=== PATIENT | female | born 1970 | race African-American/Black ===

== ENCOUNTER 2018-10-18 17:24 | Emergency (ER) | payer MEDICAID, SELFPAY ==
[2018-10-18 17:25] VITALS: BP 169/101; PULSE 96; RESP 16; TEMP 36.4; O2SAT 97; BMI 29.7
--- NOTE | 2018-10-18 17:42 | ED.VIS.GEN ---
History of Present Illness Chief Complaint: Hypertension Narrative: Patient presenting for evaluation secondary hypertension. Patient has an underlying history of hypertension, is on a antihypertensive, but forgot to take her medication this morning. Patient states that she was completely asymptomatic and denies that she was having any chest pain shortness of breath headaches changes in vision numbness weakness exertional dyspnea or orthopnea. Patient was at the drugstore, she took her blood pressure and it was noted to be 180/120 and the machine said that she should see a doctor immediately. Therefore, the patient presented to the emergency department. Past Medical History - Allergies and Home Meds Allergies/Adverse Reactions: Allergies venom-honey bee [bee venom (honey bee)] Allergy (Verified 10/18/18 17:27) Unknown Primary Care Physician: Efren Guevara MD [Primary Care Provider] - Surgical History: hysterectomy Smoking Status: Current every day smoker - Family History Paternal Family History: Reports: Unknown Maternal Family History: Reports: Asthma, Hypertension, - - MS Review of Systems All systems negative except as indicated Physical Exam Vital Signs/Narrative: Vital Signs Temp Pulse Resp BP Pulse Ox 10/18/18 17:25 97.6 F L 96 16 169/101 H 97 General: Well nourished, Well developed, No Acute Distress Head: Normocephalic, Atraumatic Eyes: Perrl, EOMI ENT: Moist mucous membranes, No rhinorrhea Neck: Supple, Nontender Cardiovascular: Regular rate, Regular rhythm, No murmurs. Negative for: S3, S4 Respiratory: No distress, CTA bilaterally, Chest nontender Abdomen: Soft, Nontender, Nondistended, Normal bowel sounds Extremities: Nontender, No edema Skin: Normal color, No rash Neurological: Alert, Oriented x3, Cranial nerves II-XII grossly intact, Normal Strength, Normal Sensation Psychological: Normal affect, Normal Mood Diagnostic/Tx/Re-eval - Medical Decision Making Patient presented secondary to hypertension. In the emergency department patient's blood pressure was 150s over 90s. She is completely asymptomatic. This point she has no signs or symptoms of hypertensive emergency or endorgan damage. I believe that she safely can be discharged with continued oral medication with her prescribed antihypertensive. She was recommended follow-up with her primary care physician. ED Disposition - Plan for ED Patient: Disposition: Home or Assisted Living Diagnosis: Hypertension Instructions: ED HTN Established Referrals: Efren Guevara MD [Primary Care Provider] - 5-7 Days
[2018-10-18 17:56] VITALS: BP 157/88; PULSE 93; RESP 16; O2SAT 98
== END 2018-10-18 18:07 | disposition home or self-care (01) ==
PROVIDERS: Emergency Provider Emergency Medicine; Family Provider Family Medicine; PCP Family Medicine
DX: I10 Essential (primary) hypertension (principal); Z79.899 Other long term (current) drug therapy; F17.200 Nicotine dependence, unspecified, uncomplicated
CPT/HCPCS: 99282

== ENCOUNTER 2019-09-22 18:37 | Emergency (ER) | payer MEDICAID, SELFPAY ==
[2019-09-22 18:38] VITALS: BP 159/100; PULSE 98; PULSE 99; RESP 17; TEMP 36.2; O2SAT 98; BMI 28.3
--- NOTE | 2019-09-22 18:52 | ED.VIS.GEN ---
History of Present Illness Chief Complaint: Diarrhea Informant: Patient Onset: Today Narrative: Presents with concerns for food poisoning with diarrhea. Ate a [employer] sandwich at 5 PM less than 2 hours ago shortly after had some stomach cramping nausea and 2 loose stools since then. Nonbloody non-tarry. No fevers. No urinary symptoms. Currently nauseated. Denies any recent antibiotics. Denies any past medical history. Prior similar symptoms: No Past Medical History - Allergies and Home Meds Allergies/Adverse Reactions: Allergies venom-honey bee [bee venom (honey bee)] Allergy (Verified 09/22/19 18:38) Unknown Primary Care Physician: Alexis Martinez MD [Primary Care Provider] - Past Medical History: - - Denies Surgical History: hysterectomy Smoking Status: Current every day smoker - Family History Paternal Family History: Reports: Unknown Maternal Family History: Reports: Asthma, Hypertension, - - MS Review of Systems General: Denies: Chills, Fever, Sweats Eyes: Denies: Visual changes - bilaterally, Diplopia ENT: Denies: Rhinorrhea, Sore throat Cardiovascular: Denies: Chest pain, Palpitations Respiratory: Denies: Dyspnea, Cough, Dyspnea on exertion Gastrointestinal: Reports: Nausea, Diarrhea. Denies: Abdominal pain, Vomiting, Melena, Hematochezia Genitourinary: Denies: Dysuria, Hematuria, Frequency Musculoskeletal: Denies: Back pain, Extremity Pain Skin: Denies: Rash, Wounds Neurological: Denies: Headache, Weakness, Numbness Physical Exam Vital Signs/Narrative: Vital Signs Temp Pulse Resp BP Pulse Ox 09/22/19 18:38 97.1 F L 98 17 159/100 H 98 Inital Vital Signs reviewed: Yes General: Well nourished, Well developed, No Acute Distress Head: Normocephalic, Atraumatic Eyes: Perrl, EOMI ENT: Moist mucous membranes Neck: Supple, Nontender Cardiovascular: Regular rate, Regular rhythm, No murmurs Respiratory: No distress, CTA bilaterally, Chest nontender Abdomen: Soft, Nontender, Nondistended, Normal bowel sounds, - - Negative Reed's or McBurney's tenderness. Back: Nontender, Normal Inspection Extremities: Nontender, No edema Skin: Normal color, No rash Neurological: Alert, Oriented x3, Cranial nerves II-XII grossly intact, Normal Strength, Normal Sensation Psychological: Normal affect, Normal Mood ED Disposition - Plan for ED Patient: Disposition: Home or Assisted Living Diagnosis: Diarrhea Instructions: ED Vomiting and Diarrhea Nonspecific Adult Prescriptions: Ondansetron [Zofran Odt] 8 mg PO Q8H PRN PRN #10 tab PRN Reason: Nausea Transmission Status: Pending to [facility][id number] Referrals: Alexis Martinez MD [Primary Care Provider] - 3-5 Days if not improving
[2019-09-22] MEDS: Ondansetron ODT 4 MG Tablet 8 MG PO (19:32)
--- NOTE | 2019-09-22 19:46 | ED.RN ---
Pt provided 8 oz of water for PO challenge per Dr Jang
[2019-09-22 20:35] VITALS: BP 129/99; PULSE 99; RESP 16; O2SAT 100
== END 2019-09-22 20:35 | disposition home or self-care (01) ==
PROVIDERS: Emergency Provider Emergency Medicine; PCP Family Medicine
DX: R19.7 Diarrhea, unspecified (principal); R10.9 Unspecified abdominal pain; R11.0 Nausea; F17.200 Nicotine dependence, unspecified, uncomplicated
CPT/HCPCS: 99283

== ENCOUNTER 2019-10-13 05:21 | Inpatient (IN) | payer MEDICAID, SELFPAY ==
[2019-10-13] VITALS (12 sets, daily range): BP systolic 152–182; BP diastolic 89–121; PULSE 72–108; RESP 16–22; TEMP 35.7–36.8; O2SAT 95–100; BMI 28.1; BMI 27.6; BMI 27.7
--- NOTE | 2019-10-13 05:24 | RAD_ITS ---
STUDY: X-RAY CHEST REASON FOR EXAM: Female, 49 years old. chest pain TECHNIQUE: AP portable chest. COMPARISON: None. FINDINGS: The lungs are clear and expanded. There is no demonstrated pleural abnormality. Normal size heart. Normal mediastinum and brianna. Normal visualized pulmonary arteries. Normal visualized aortic arch and descending thoracic aorta. Normal visualized thoracic spine. Normal visualized ribs, clavicles, and shoulders. There is no demonstrated abnormality of the visualized soft tissue structures of the upper abdomen. RAD/Chest 1 View (Portable) IMPRESSION: Normal x-ray examination of the chest. Electronically Signed: Dirk Winters MD at 6:44 EDT , Service support ,
--- NOTE | 2019-10-13 05:24 | EKG12_ITS ---
Test Reason : CP Blood Pressure : / mmHG Vent. Rate : 105 BPM Atrial Rate : 105 BPM P-R Int : 130 ms QRS Dur : 090 ms QT Int : 358 ms P-R-T Axes : 051 093 077 degrees QTc Int : 473 ms Sinus tachycardia Nonspecific ST abnormality Abnormal ECG Confirmed by VERNON ZEPEDA, LD ([id number]), editor magazine STEPHANIE VALLEJO ([id number]) on 10/19/2019 9:44:06 AM Referred By: Confirmed By:LD JUNIOR MD
[2019-10-13 05:33] LABS: Absolute Neutrophil Count 6.2 X10^3/uL (2.0-7.7); Basophil# 0.02 X10^3/uL; Basophil% 0.2 % (0-1); Eosinophil# 0.02 X10^3/uL; Eosinophils% 0.2 % (0-5); Hematocrit 39.9 % (37-47); Hemoglobin 13.4 g/dL (12.0-15.0); Lymphocyte % 20.3 % (19-41); Mean Corp Hgb Conc 33.6 g/dL (32-36); Mean Corpuscular Volume 92.4 fL (81-99); Mean Platelet Vol. 10.1 fl (6.2-12.0); Monocyte# 0.38 X10^3/uL; Monocyte% 4.5 % (0-10); NRBC Flagged by Analyzer 0 % (0-5); Neutrophil # 6.23 X10^3/uL (2.7-7.7); Neutrophil % 74.6 % (47-70); Platelet Count 278 K/mm3 (150-450); RBC Distribution Width CV 13.6 % (11.6-14.6); RBC Distribution Width SD 45.3 fl (35.1-43.9); Red Blood Count 4.32 M/mm3 (4.2-5.4); White Blood Count 8.4 K/mm3 (4.4-11.0)
[2019-10-13] MEDS: Ondansetron 4 MG/2 ML Vial IV ×2 (05:38→19:31)
[2019-10-13] MEDS: Mag Hydrox/Al Hydrox/Simeth 30 ML UDC PO ×2 (05:39→20:01)
--- NOTE | 2019-10-13 05:57 | ED.VIS.GEN ---
History of Present Illness Chief Complaint: Chest Pain Informant: Patient Narrative: Patient states that yesterday during the day she kept forcefully expelling acid from her stomach. She does not call it vomiting. She states she has not been able to eat. She states that she has tried some Tums and Pepcid. She states that her chest and upper abdomen is sore from this vomiting. No fevers. No diarrhea. She states that she has had pancreatitis in the past and this feels much different. She states that she is never had gallstones. She had an MRCP in 2016 and was noted to have an enlarging pancreatic mass. She tells me she ended up having a biopsy and it was diagnosed as benign. Past Medical History - Allergies and Home Meds Allergies/Adverse Reactions: Allergies venom-honey bee [bee venom (honey bee)] Allergy (Verified 10/13/19 05:26) Unknown Primary Care Physician: Alexis Martinez MD [Primary Care Provider] - Surgical History: hysterectomy Smoking Status: Former smoker - Family History Paternal Family History: Reports: Unknown Maternal Family History: Reports: Asthma, Hypertension, - - MS Review of Systems General: Denies: Chills, Fever, Sweats Eyes: Denies: Visual changes - bilaterally, Diplopia ENT: Denies: Rhinorrhea, Sore throat Cardiovascular: Reports: Chest pain. Denies: Palpitations Respiratory: Reports: Dyspnea. Denies: Cough, Dyspnea on exertion Gastrointestinal: Reports: Abdominal pain, Nausea, Vomiting. Denies: Diarrhea, Melena, Hematochezia Genitourinary: Denies: Dysuria, Hematuria, Frequency Musculoskeletal: Denies: Back pain, Extremity Pain Skin: Denies: Rash, Wounds Neurological: Denies: Headache, Weakness, Numbness Physical Exam Vital Signs/Narrative: Vital Signs Temp Pulse Resp BP Pulse Ox 10/13/19 05:30 108 H 22 H 167/119 H 100 10/13/19 05:26 166/97 H 10/13/19 05:21 96.3 F L 106 H 18 182/121 H 99 Inital Vital Signs reviewed: Yes General: Well nourished, Well developed, No Acute Distress Head: Normocephalic, Atraumatic Eyes: Perrl, EOMI ENT: Moist mucous membranes, No rhinorrhea Neck: Supple, Nontender Cardiovascular: Regular rate, No murmurs, Tachycardia Respiratory: CTA bilaterally, Chest nontender, Chest tenderness, - - Patient is tachypneic but not in distress Abdomen: Soft, Nondistended, Normal bowel sounds, Tender - Mild epigastric tenderness. Negative for: Guarding, Rebound tenderness Back: Nontender, Normal Inspection Extremities: Nontender, No edema Skin: Normal color, No rash Neurological: Alert, Oriented x3, Cranial nerves II-XII grossly intact, Normal Strength, Normal Sensation Psychological: Normal affect, Normal Mood Diagnostic/Tx/Re-eval Clinical Impression(s) from Imaging Studies Chest X-Ray 10/13/19 05:24 IMPRESSION: Normal x-ray examination of the chest. Electronically Signed: Dirk Winters MD at 6:44 EDT , Service support , Abdomen/Pelvis CT 10/13/19 06:15 IMPRESSION: Enlargement of the head of the pancreas with surrounding fat infiltration, suspicious for recurrent acute pancreatitis. No demonstrated pseudocyst or ductal dilatation. 2.5 cm nodular structure protruding into the lumen of the duodenal sweep may represent a growing pancreatic mass or an ampullary mass. Consider follow-up MRCP or upper endoscopy. Fatty liver. Colonic diverticulosis, without evidence for acute diverticulitis. Previous hysterectomy. No evidence for appendicitis. No evidence for bowel obstruction or ileus. Electronically Signed: Wilmer Resendiz MD at 7:33 EDT , Service support , Chest CTA 10/13/19 06:40 IMPRESSION: Normal CTA chest examination, without a demonstrated pulmonary embolism, aortic aneurysm, aortic dissection. No evidence for acute cardiopulmonary pathology. Electronically Signed: Wilmer Resendiz MD at 7:22 EDT , Service support , Laboratory Last Values WBC 8.4 K/mm3 (4.4-11.0) 10/13/19 05:27 RBC 4.32 M/mm3 (4.2-5.4) 10/13/19 05:27 Hgb 13.4 g/dL (12.0-15.0) 10/13/19 05:27 Hct 39.9 % (37-47) 10/13/19 05:27 MCV 92.4 fL (81-99) 10/13/19 05:27 MCH 31.0 pg (27.0-32.0) 10/13/19 05:27 MCHC 33.6 g/dL (32-36) 10/13/19 05:27 RDW Std Deviation 45.3 fl (35.1-43.9) H 10/13/19 05:27 RDW Coeff of Jose M 13.6 % (11.6-14.6) 10/13/19 05:27 Plt Count 278 K/mm3 (150-450) 10/13/19 05:27 MPV 10.1 fl (6.2-12.0) 10/13/19 05:27 Immature Gran % (Auto) 0.200 % (0.0-0.9) 10/13/19 05:27 Neut % (Auto) 74.6 % (47-70) H 10/13/19 05:27 Lymph % (Auto) 20.3 % (19-41) 10/13/19 05:27 Gordon % (Auto) 4.5 % (0-10) 10/13/19 05:27 Eos % (Auto) 0.2 % (0-5) 10/13/19 05:27 Baso % (Auto) 0.2 % (0-1) 10/13/19 05:27 Absolute Neuts (auto) 6.2 X10^3/uL (2.0-7.7) 10/13/19 05:27 Absolute Lymphs (auto) 1.70 X10^3/uL (0.83-4.51) 10/13/19 05:27 Nucleated RBC % 0 % (0-5) 10/13/19 05:27 Sodium 137 mmol/L (136-145) 10/13/19 05:27 Potassium 3.7 mmol/L (3.5-5.1) 10/13/19 05:27 Chloride 101 mmol/L (98-107) 10/13/19 05:27 Carbon Dioxide 23.0 mmol/L (21.0-32.0) 10/13/19 05:27 Anion Gap 13 (5-15) 10/13/19 05:27 BUN 8 mg/dL (7-18) 10/13/19 05:27 Creatinine 1.04 mg/dL (0.55-1.02) H 10/13/19 05:27 Estim Creat Clear Calc 64.33 ml/min 10/13/19 05:27 Est GFR (MDRD) Af Amer 73 mL/min (>60) 10/13/19 05:27 Est GFR (MDRD) Non-Af 60 mL/min (>60) 10/13/19 05:27 BUN/Creatinine Ratio 7.7 RATIO (10-20) L 10/13/19 05:27 Glucose 141 mg/dL (74-106) H 10/13/19 05:27 Calcium 9.8 mg/dL (8.5-10.1) 10/13/19 05:27 Total Bilirubin 0.90 mg/dL (0.20-1.00) 10/13/19 05:27 Direct Bilirubin 0.28 mg/dL (0.00-0.30) 10/13/19 05:27 AST 37 U/L (15-37) 10/13/19 05:27 ALT 49 U/L (13-56) 10/13/19 05:27 Alkaline Phosphatase 85 U/L (45-117) 10/13/19 05:27 Troponin I < 0.015 ng/mL (<0.045) 10/13/19 05:27 Total Protein 8.8 g/dL (6.4-8.2) H 10/13/19 05:27 Albumin 4.6 g/dL (3.2-5.0) 10/13/19 05:27 Globulin 4.2 g/dL (2.2-4.2) 10/13/19 05:27 Lipase 1638 U/L (73-393) H 10/13/19 05:27 - EKG Initial EKG Interpretation: Sinus Tachycardia - EKG demonstrates a sinus tachycardia at a rate of 105 without concerning features of ACS. This was compared to prior EKG dated 10 October 2014. No significant changes. - Medical Decision Making Initially the patient received fluids Zofran and a GI cocktail. She was vomiting and experiencing pain so we gave Toradol. Her labs came back with a markedly elevated lipase morphine and Zofran were ordered for as needed use. Because it is been at least 4 years since her last episode of pancreatitis we went ahead and ordered a CT of the abdomen pelvis. This noted enlargement of the head of the pancreas surrounding fat infiltration. No pseudocyst or ductal dilatation. Of note they did mention a 2.5 cm nodular structure protruding into the lumen of the duodenal sweep possibly representing a growing pancreatic mass or an ampullary mass. At this point patient will be admitted into the hospital for further care ED Disposition - Plan for ED Patient: Disposition: Acute Care Hospital [facility], [place] Diagnosis: Acute pancreatitis, Chest wall pain, Acute abdominal pain Referrals: Alexis Martinez MD [Primary Care Provider] -
[2019-10-13] MEDS: Ketorolac 30 MG/ML Syringe IV (06:01)
[2019-10-13 06:10] LABS: AST(SGOT) 37 U/L (15-37); Alanine Aminotransfer ALT/SGPT 49 U/L (13-56); Albumin, Serum 4.6 g/dL (3.2-5.0); Alkaline Phosphatase 85 U/L (45-117); Anion Gap 13 (5-15); BUN 8 mg/dL (7-18); BUN/Creat Ratio 7.7 RATIO (10-20); Bilirubin, Direct 0.28 mg/dL (0.00-0.30); Calcium,Total 9.8 mg/dL (8.5-10.1); Chloride 101 mmol/L (98-107); Creatinine, Serum 1.04 mg/dL (0.55-1.02); EST Glomerular Filtration Rate 60 mL/min (>60); Est Glom Filt Rate - Afr Amer 73 mL/min (>60); Estimated Creatinine Clearance 64.33 ml/min; Globulin 4.2 g/dL (2.2-4.2); Glucose 141 mg/dL (74-106); Lipase 1638 U/L (73-393); Potassium 3.7 mmol/L (3.5-5.1); Protein, Total 8.8 g/dL (6.4-8.2); Sodium Level 137 mmol/L (136-145)
--- NOTE | 2019-10-13 06:15 | CT_ITS ---
STUDY: CT ABDOMEN AND PELVIS WITHOUT CONTRAST REASON FOR EXAM: Female, 49 years old. Chest pain x 2 days, hypertension, hx pancreatitis with mass and biopsy (benign 2016), hysterectomy. RADIATION DOSAGE (If Supplied By Facility): CTDIvol = ( 9.79 ) mGy, DLP = ( 446.41 ) mGycm TECHNIQUE: Transaxial images were obtained from the dome of the diaphragm to the symphysis pubis without oral contrast, and without intravenous contrast. Sagittal and coronal images were reconstructed. Individualized dose optimization techniques were used for this CT. COMPARISON: CTA chest done today. CT scan abdomen and pelvis 10/10/2014. MRCP 11/21/2015. FINDINGS: The visualized lung bases are unremarkable. The visualized portions of the heart are within normal limits. There is decreased attenuation of the liver consistent with steatosis. Normal gallbladder and extrahepatic biliary system. Normal spleen. The head of the pancreas is enlarged and there is surrounding fat infiltration, suggesting recurrent acute pancreatitis. There is note demonstrated pseudocyst or ductal dilatation. As seen on axial images 39-44, there is a 2 x 2.2 x 2.5 cm nodular structure protruding into the lumen of the lesser curvature of the distal second portion of the duodenal sweep. Finding may represent a pancreatic mass growing into the duodenum or it might represent an ampullary mass. Similar appearance was not present on the 2015 exam and it is also not readily appreciated on the 2016 MRI. Normal bilateral adrenal glands. Normal right kidney. Normal left kidney. There is excreted contrast within the renal collecting systems, which limits evaluation for renal calculi. No large or obstructive calculi are evident. Assessment of the stomach is limited by poor distention. Aside from findings related to the proximal duodenal sweep, as above, normal appearing small intestine. There are multiple colonic diverticula consistent with diverticulosis. The appendix is visualized on axial images 73-81 and it appears normal.. Normal abdominal aorta. Normal inferior vena cava. There is no demonstrated retroperitoneal lymphadenopathy. Normal urinary bladder. There is absence of the uterus consistent with a prior hysterectomy. There is a small umbilical hernia, which contains fat, but no bowel. Normal osseous structures. CT/Abdomen/Pelvis W IV Cont ONLY IMPRESSION: Enlargement of the head of the pancreas with surrounding fat infiltration, suspicious for recurrent acute pancreatitis. No demonstrated pseudocyst or ductal dilatation. 2.5 cm nodular structure protruding into the lumen of the duodenal sweep may represent a growing pancreatic mass or an ampullary mass. Consider follow-up MRCP or upper endoscopy. Fatty liver. Colonic diverticulosis, without evidence for acute diverticulitis. Previous hysterectomy. No evidence for appendicitis. No evidence for bowel obstruction or ileus. Electronically Signed: Wilmer Resendiz MD at 7:33 EDT , Service support ,
--- NOTE | 2019-10-13 06:40 | CT_ITS ---
STUDY: CTA CHEST REASON FOR EXAM: Female, 49 years old. Chest pain x 2 days, hypertension, hx pancreatitis with mass and biopsy (benign 2016), hysterectomy. RADIATION DOSAGE (If Supplied By Facility): CTDIvol = ( 9.79 ) mGy, DLP = ( 446.41 ) mGycm TECHNIQUE: The examination was performed with the intravenous administration of 100mL Isovue 370. Post-processing of the angiographic images was performed, with multiplanar reformation, but without 3D reconstruction. Individualized dose optimization techniques were used for this CT. COMPARISON: Chest x-ray 10/13/2019. FINDINGS: Normal enhancement of the main pulmonary artery and right and left pulmonary arteries. Normal enhancement of the bilateral peripheral pulmonary arteries. There is no demonstrated pulmonary embolism. Normal thoracic aorta and visualized great vessels. There is no demonstrated aortic dissection. Normal heart and pericardium. Normal mediastinum. Normal hilar regions. Normal visualized trachea and bronchi. The lungs are well expanded. Normal pulmonary parenchyma. Normal pleura. Normal chest wall structures. Normal osseous structures. Abdominal findings will be discussed in CT scanning abdomen and pelvis report. CT/CTA Chest W/WO Contrast IMPRESSION: Normal CTA chest examination, without a demonstrated pulmonary embolism, aortic aneurysm, aortic dissection. No evidence for acute cardiopulmonary pathology. Electronically Signed: Wilmer Resendiz MD at 7:22 EDT , Service support ,
[2019-10-13] MEDS: 0.9% Normal Saline 1,000 ML 999 ML IV (07:07)
--- NOTE | 2019-10-13 07:43 | PCM.HP.STD ---
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 Patient presents with 3-day history of abdominal discomfort with nausea and vomiting. Patient admits to having history of GERD and has been having recurrent reflux. Pain was progressive the night prior to admission. It was epigastric and radiated to the upper quadrants, worse with eating, dull, no relieving factors. Vitals showed temperature of 90 6.3F, heart rate 106, blood pressure 182/121, respiratory was 18, SPO2 99% on room air. WBC count was 8.4, hemoglobin 13.4, platelet count 273, CMP was unremarkable. Lipase is 1638. Admitting chest x-ray was unremarkable. Of the abdomen and pelvis shows enlargement of the head of the pancreas with surrounding fat infiltration suspicious for recurrent acute pancreatitis. 2.5 cm nodular structure protruding to the lumen of the duodenal sweep, possible pancreatic mass. CTA of the chest was unremarkable. MRCP was unremarkable. 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 Denies: Chills, Fever, Weight Change Eyes: Denies: Blurred vision, Cataracts HEENT: Denies: Head Aches, Hearing Changes, Sinus Congestion, Sinus Drainage Cardiovascular: Denies: Chest Pain, Claudication, Palpitations Respiratory: Denies: Cough, Hemoptysis, Shortness of breath at rest, Sputum production Gastrointestinal: Reports: Abdominal Pain, Nausea, Vomiting. Denies: Diarrhea, Dyspepsia, Hematemesis, Hematochezia, Melena Genitourinary: Denies: Dysuria Musculoskeletal: Denies: Joint Pain, Joint Tenderness Skin: Denies: Rash, Wounds Neurological: Denies: Numbness, Tingling, Focal weakness Psychiatric: Denies: Anxiety, Depression, Homicidal Ideations, Suicidal Ideations Hematologic/ Lymphatic: Denies: Easy Bruising, Easy Bleeding VTE Information - Inpt Only VTE Present on Admission: No VTE Pharm Prophylaxis ordered?: Yes Patient Problems: Active and Suspected Problems Acute pancreatitis (Acute) Chest wall pain (Acute) Acute abdominal pain (Acute) - Physical Exam Vitals/I&O's: Vital Signs Temp Pulse Resp BP Pulse Ox 96.3 F L 88 16 167/114 H 99 10/13/19 05:21 10/13/19 07:08 10/13/19 07:08 10/13/19 07:08 10/13/19 07:08 Oxygen Flow Rate (L/min) 2 Oxygen Delivery Method Nasal Cannula Weight: 81.6 kg Body Mass Index (BMI) 28.1 General: Alert, Oriented x3, Cooperative, No apparent distress HEENT: Atraumatic, PERRLA, EOMI, Normocephalic Oral: Moist Mucosa Neck: Supple Lungs: Clear to auscultation, Normal air movement Cardiovascular: Regular rate, Regular Rhythm, Normal S1, Normal S2, No murmurs Abdomen: Bowel Sounds Present, Soft, Non-Distended, Tender - in the epigastric region, no guarding or rebound tenderness Extremities: No edema, Capillary Refill Less than 3 Seconds Skin: No rashes Musculoskeletal: No Tenderness to Palpation of Joints or Extremities Lymphatic: No Cervical, Supraclavicular, or Inguinal Adenopathy Neurological: Cranial nerves II-XII grossly intact Psych/Mental Status: Normal Affect, Appropriate Laboratory Results 10/13/19 05:27: WBC 8.4, RBC 4.32, Hgb 13.4, Hct 39.9, MCV 92.4, MCH 31.0, MCHC 33.6, RDW Std Deviation 45.3 H, RDW Coeff of Jose M 13.6, Plt Count 278, MPV 10.1, Immature Gran % (Auto) 0.200, Neut % (Auto) 74.6 H, Lymph % (Auto) 20.3, [place] % (Auto) 4.5, Eos % (Auto) 0.2, Baso % (Auto) 0.2, Absolute Neuts (auto) 6.2, Absolute Lymphs (auto) 1.70, Nucleated RBC % 0 10/13/19 05:27: Sodium 137, Potassium 3.7, Chloride 101, Carbon Dioxide 23.0, Anion Gap 13, BUN 8, Creatinine 1.04 H, Estim Creat Clear Calc 64.33, Est GFR (MDRD) Af Amer 73, Est GFR (MDRD) Non-Af 60, BUN/Creatinine Ratio 7.7 L, Glucose 141 H, Calcium 9.8, Total Bilirubin 0.90, Direct Bilirubin 0.28, AST 37, ALT 49, Alkaline Phosphatase 85, Troponin I < 0.015, Total Protein 8.8 H, Albumin 4.6, Globulin 4.2, Lipase 1638 H Current Medications Sodium Chloride () 1,000 mls @ 999 mls/hr IV .[id number] VICKIE Stop: 10/13/19 08:45 Last Admin: 10/13/19 07:07 Dose: 999 mls/hr Documented by: Morphine Sulfate () 4 mg IV X1 PRN PRN Reason: pain Ondansetron HCl (Zofran) 4 mg IV X1 PRN PRN Reason: NAUSEA Assessment/Plan All Active Problems Acute pancreatitis (Acute) Chest wall pain (Acute) Acute abdominal pain (Acute) Mid abdominal pain (Acute) Pancreatitis (Acute) 49 year old F with past medical history of 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 1. Acute recurrent pancreatitis, history of alcoholic pancreatitis Patient has history of alcohol use disorder although she says she last drank alcohol a week ago. Admitting lipase was more than 1600 N.p.o., IV fluids, pain control, IV PPI 2. Elevated blood pressure, likely related to pain Patient has history of hypertension. On lisinopril We will hold lisinopril for now in light of possible hemodynamic instability Resume tomorrow if renal function is stable 3. Possible duodenal/pancreatic mass, MRCP negative, Will monitor for now 4. GERD, on PPI 5. Depression, on Lexapro 6. DVT PPx- early ambulation Inpatient E&M: [id number] [facility] L[facility]
--- NOTE | 2019-10-13 07:47 | NURSING ---
MED SURG CHEST PAIN, ABD PAIN PAINTSIL
--- NOTE | 2019-10-13 08:32 | MRI_ITS ---
STUDY: MR MRCP WITHOUT CONTRAST REASON FOR EXAM: Female, 49 years old. panc mass, pancreatitis TECHNIQUE: Standard MRCP technique was utilized. COMPARISON: CT 10/13/2019, MRCP 11/21/2015 FINDINGS: Gall Bladder: Normal with no distention or demonstrated fixed intraluminal filling defect. Cystic duct: Normal with no demonstrated fixed filling defect. Intrahepatic ducts: Normal visualized intrahepatic ducts with no demonstrated fixed filling defect, dilation or stricture. Common hepatic duct: Normal with no demonstrated fixed filling defect, dilation or stricture. Common bile duct: Normal with no demonstrated fixed filling defect, dilation or stricture. Pancreatic duct: Normal with no demonstrated fixed filling defect, dilation or stricture. MRI/MRCP Abdomen without Contrast IMPRESSION: Normal MR Cholangiopancreatography (MRCP). Electronically Signed: Darrel Boothe MD at 11:11 EDT Tel , Service support ,
[2019-10-13] MEDS: 0.9% Normal Saline 1,000 ML 100 ML IV ×2 (08:51→19:55)
[2019-10-13] MEDS: Morphine 2 MG/ML Syringe IV ×3 (08:53→14:03)
[2019-10-13] MEDS: LORazepam 1 MG Tablet 2 MG PO (09:31)
--- NOTE | 2019-10-13 09:45 | NURSING ---
Off unit for MRCP
[2019-10-13] MEDS: 0.9% Saline Lock 10 ML Syringe IV ×3 (10:51→23:55)
[2019-10-13 11:06] LABS: Bedside Glucose 104 mg/dL (70-110)
--- NOTE | 2019-10-13 12:15 | CASEMGMT ---
RN ALEJANDRA PROFESSOR OF EXERCISE SCIENCE CM to room to meet with patient for initial transition planning/care coordination assessment. ELVA ROBERTS introduced self and role at [facility]. Pt voices understanding and consents to assessment at this time. Pt resting in bed in no distress at this time. Pt is A/O at this time and answers all questions appropriately. Care providers, pharmacy, and demographics verified/updated at this time. PCP: Dr Martinez Specialists: None Preferred Pharmacy: [facility] Insurance: [employer] Prescription Benefit: Yes Living Will/HPOA: Has both LW and Healthcare POA, who is her , Sidney LNOK: , Sidney Living Arrangements: Lives w/her in an apt w/10-15 steps to enter the apt. Denies difficulty with stairs. Independent. Transportation: Pt states drives self and states no transportation concerns at this time. also drives DME: Denies using any DME and denies needs. HHC/SNF: No history of either. No needs identified. Pt wishes to return home and states has no concerns with going home at time of discharge. Pt states she drink about 1/2 bottle of wine a day. She states she had quit drinking in 2016, but then just started again about 6 months to a year ago. Pt states does not wish to talk with SW or for any resources, stating not at this point. Pt made aware, if she does decide she would like to talk with SW or would like resources to let staff know. Pt voices understanding. CM to follow for any discharge planning/needs. Pt voices no concerns/needs at this time. Advised pt to ask for CM if any further questions/concerns/needs arise. Voices understanding. PLAN: Home Sarah AGOSTO RN, CM
[2019-10-13] MEDS: Morphine 4 MG/ML Syringe IV ×3 (17:21→23:55)
[2019-10-13 17:26] LABS: Bedside Glucose 110 mg/dL (70-110)
[2019-10-13] MEDS: hydrALAZINE 20 MG/ML Vial 5 MG IV (17:42)
[2019-10-13] MEDS: amLODIPine 5 MG Tablet PO (18:52)
[2019-10-14 00:05] LABS: Bedside Glucose 119 mg/dL (70-110)
[2019-10-14] MEDS: 0.9% Saline Lock 10 ML Syringe IV ×4 (02:55→23:47)
[2019-10-14] MEDS: Morphine 4 MG/ML Syringe IV ×7 (02:55→23:47)
[2019-10-14 03:01] VITALS: BP 148/89; PULSE 102; RESP 16; TEMP 37; O2SAT 100
[2019-10-14 05:45] LABS: Absolute Lymphocyte Count 1.29 X10^3/uL (0.83-4.51); Absolute Neutrophil Count 7.9 X10^3/uL (2.0-7.7); Basophil# 0.01 X10^3/uL; Basophil% 0.1 % (0-1); Eosinophil# 0.03 X10^3/uL; Eosinophils% 0.3 % (0-5); Hemoglobin 12.4 g/dL (12.0-15.0); Lymphocyte # 1.29 X10^3/ul (4.0); Lymphocyte % 13.1 % (19-41); Mean Corp Hgb Conc 32.6 g/dL (32-36); Mean Corpuscular Hgb 30.5 pg (27.0-32.0); Mean Corpuscular Volume 93.4 fL (81-99); Mean Platelet Vol. 10.4 fl (6.2-12.0); Monocyte# 0.59 X10^3/uL; NRBC Flagged by Analyzer 0 % (0-5); Neutrophil # 7.91 X10^3/uL (2.7-7.7); Neutrophil % 80.1 % (47-70); Platelet Count 218 K/mm3 (150-450); RBC Distribution Width CV 13.4 % (11.6-14.6); RBC Distribution Width SD 45.9 fl (35.1-43.9); Red Blood Count 4.07 M/mm3 (4.2-5.4); White Blood Count 9.9 K/mm3 (4.4-11.0)
[2019-10-14] MEDS: Ondansetron 4 MG/2 ML Vial IV ×2 (06:00→19:52)
[2019-10-14 06:04] LABS: ALB/GLOB Ratio 0.9 RATIO (0.9-2.4); AST(SGOT) 24 U/L (15-37); Alanine Aminotransfer ALT/SGPT 36 U/L (13-56); Albumin, Serum 3.8 g/dL (3.2-5.0); Alkaline Phosphatase 70 U/L (45-117); Anion Gap 10 (5-15); BUN 3 mg/dL (7-18); BUN/Creat Ratio 4.5 RATIO (10-20); Calcium,Total 8.8 mg/dL (8.5-10.1); Chloride 100 mmol/L (98-107); Creatinine, Serum 0.66 mg/dL (0.55-1.02); EST Glomerular Filtration Rate 101 mL/min (>60); Est Glom Filt Rate - Afr Amer 122 mL/min (>60); Estimated Creatinine Clearance 101.37 ml/min; Globulin 4.1 g/dL (2.2-4.2); Glucose 106 mg/dL (74-106); Lipase 856 U/L (73-393); Potassium 3.3 mmol/L (3.5-5.1); Protein, Total 7.9 g/dL (6.4-8.2); Sodium Level 136 mmol/L (136-145)
[2019-10-14] MEDS: 0.9% Normal Saline 1,000 ML 100 ML IV ×2 (06:06→15:57)
[2019-10-14] MEDS: Acetaminophen 325 MG Tablet 650 MG PO ×3 (06:06→23:47)
[2019-10-14 06:16] LABS: Bedside Glucose 122 mg/dL (70-110)
[2019-10-14 08:45] VITALS: BP 155/109; PULSE 98; RESP 16; TEMP 37.1; O2SAT 100
[2019-10-14] MEDS: Lisinopril 40 MG Tablet PO (08:46)
[2019-10-14] MEDS: amLODIPine 5 MG Tablet PO (08:46)
--- NOTE | 2019-10-14 10:16 | NURSING ---
offered to call pt and provide update, pt refused stating that she will update him later as he is getting chemo treatment at this time
[2019-10-14] MEDS: Potassium Chloride 10mEq/100mL 10 MEQ/100 ML IV.SOLN. 100 MEQ IV BOLUS ×2 (10:52→12:03)
[2019-10-14 10:56] VITALS: BP 133/90
[2019-10-14 12:16] LABS: Bedside Glucose 109 mg/dL (70-110)
--- NOTE | 2019-10-14 13:16 | PCM.CONS.GEN ---
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 Patient presents with 3-day history of abdominal discomfort with nausea and vomiting. Patient admits to having history of GERD and has been having recurrent reflux. Pain was progressive the night prior to admission. It was epigastric and radiated to the upper quadrants, worse with eating, dull, no relieving factors. Vitals showed temperature of 90 6.3F, heart rate 106, blood pressure 182/121, respiratory was 18, SPO2 99% on room air. WBC count was 8.4, hemoglobin 13.4, platelet count 273, CMP was unremarkable. Lipase is 1638. Admitting chest x-ray was unremarkable. Of the abdomen and pelvis shows enlargement of the head of the pancreas with surrounding fat infiltration suspicious for recurrent acute pancreatitis. 2.5 cm nodular structure protruding to the lumen of the duodenal sweep, possible pancreatic mass. CTA of the chest was unremarkable. MRCP was unremarkable. 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 Denies: Nausea, Vomiting Patient Problems: Active and Suspected Problems Acute pancreatitis (Acute) Chest wall pain (Acute) Acute abdominal pain (Acute) - Physical Exam Vitals/I&O's: Vital Signs Temp Pulse Resp BP Pulse Ox 98.8 F 98 16 133/90 H 100 10/14/19 08:45 10/14/19 08:45 10/14/19 08:45 10/14/19 10:56 10/14/19 08:45 Oxygen Flow Rate (L/min) 2 Oxygen Delivery Method Room Air Weight: 176 lb 12.795 oz Body Mass Index (BMI) 27.6 Intake and Output for Last 24 Hours 10/12/19 10/13/19 10/14/19 23:59 23:59 23:59 Intake Total 2241.66 / 2241.66 1491.33 / 1491.33 Output Total 200 / 200 1800 / 1800 Balance 2041.66 / 2041.66 -308.67 / -308.67 General: Alert, Oriented x3 Lungs: Clear to auscultation Cardiovascular: Regular rate, Regular Rhythm, No murmurs Abdomen: Bowel Sounds Present, Soft, Non Tender, Distended Laboratory Results 10/13/19 17:17: POC Glucose 110 10/13/19 23:57: POC Glucose 119 H 10/14/19 05:15: WBC 9.9, RBC 4.07 L, Hgb 12.4, Hct 38.0, MCV 93.4, MCH 30.5, MCHC 32.6, RDW Std Deviation 45.9 H, RDW Coeff of Jose M 13.4, Plt Count 218, MPV 10.4, Immature Gran % (Auto) 0.400, Neut % (Auto) 80.1 H, Lymph % (Auto) 13.1 L, [place] % (Auto) 6.0, Eos % (Auto) 0.3, Baso % (Auto) 0.1, Absolute Neuts (auto) 7.9 H, Absolute Lymphs (auto) 1.29, Nucleated RBC % 0 10/14/19 05:15: Sodium 136, Potassium 3.3 L, Chloride 100, Carbon Dioxide 26.0, Anion Gap 10, BUN 3 L, Creatinine 0.66, Estim Creat Clear Calc 101.37, Est GFR (MDRD) Af Amer 122, Est GFR (MDRD) Non-Af 101, BUN/Creatinine Ratio 4.5 L, Glucose 106, Calcium 8.8, Total Bilirubin 0.60, AST 24, ALT 36, Alkaline Phosphatase 70, Total Protein 7.9, Albumin 3.8, Globulin 4.1, Albumin/Globulin Ratio 0.9, Lipase 856 H 10/14/19 06:10: POC Glucose 122 H 10/14/19 12:00: POC Glucose 109 Current Medications Acetaminophen (Tylenol) 650 mg PO Q6H PRN PRN PRN Reason: Pain Score 1-10/Temp > 100.7 F Last Admin: 10/14/19 06:06 Dose: 650 mg Documented by: Al Hydroxide/Mg Hydroxide (Mylanta Ii) 30 ml PO Q4H PRN PRN PRN Reason: DYSPEPSIA Last Admin: 10/13/19 20:01 Dose: 30 ml Documented by: Amlodipine Besylate (Norvasc) 5 mg PO DAILY [facility] Last Admin: 10/14/19 08:46 Dose: 5 mg Documented by: Dextrose (D50w Syringe) 0 gm IV X1 PRN; Protocol PRN Reason: Hypoglycemia Glucagon () 1 mg IM .X1 PRN PRN Reason: Hypoglycemia Hydralazine HCl (Apresoline Iv) 5 mg IV Q6H PRN PRN PRN Reason: BLOOD PRESSURE Last Admin: 10/13/19 17:42 Dose: 5 mg Documented by: Sodium Chloride () 250 mls @ 15 mls/hr IV .[id number] PRN PRN Reason: Saline Flush Last Infusion: 10/14/19 13:03 Dose: 15 mls/hr Documented by: Sodium Chloride () 250 mls @ 15 mls/hr IV .[id number] PRN PRN Reason: Additional IVPB Infusion Sodium Chloride () 1,000 mls @ 100 mls/hr IV .Q10H VICKIE Last Infusion: 10/14/19 09:06 Dose: 100 mls/hr Documented by: Pantoprazole Sodium 40 mg/ (Sodium Chloride) 110 mls @ 330 mls/hr IV Q12 VICKIE Last Infusion: 10/14/19 09:06 Dose: Infused Documented by: Insulin Human Lispro (Humalog Kwikpen (Bkc)) 0 unit SC Q6 VICKIE; Protocol Last Admin: 10/14/19 12:00 Dose: Not Given Documented by: Lisinopril (Zestril) 40 mg PO DAILY VICKIE Last Admin: 10/14/19 08:46 Dose: 40 mg Documented by: Morphine Sulfate () 4 mg IV Q3H PRN PRN PRN Reason: Pain Score 6-10/10 Last Admin: 10/14/19 12:01 Dose: 4 mg Documented by: Ondansetron HCl (Zofran) 4 mg IV Q8H PRN PRN PRN Reason: NAUSEA/VOMITING Last Admin: 10/14/19 06:00 Dose: 4 mg Documented by: Sodium Chloride () 10 - 40 ml IV UD PRN PRN Reason: SALINE FLUSH Last Admin: 10/14/19 06:00 Dose: 10 ml Documented by: Assessment/Plan All Active Problems Acute pancreatitis (Acute) Chest wall pain (Acute) Acute abdominal pain (Acute) Mid abdominal pain (Acute) Pancreatitis (Acute) At this point conservative measurements are appropriate. She does have a chore worker that she has seen in [place] and I think the best course of action is to have CDs burned of all of her images so that she can go up and see the chore worker once she has resolved from this episode of pancreatitis. She more likely will have to have another EGD and possible exam ultrasound and potential pancreatic biopsy. Unfortunately we do not offer those services here. I reviewed the images from her past CAT scans in 2014 to now and this still might all be related to her pancreatitis. However I did instruct her that this is going to require her to get further follow-up. She understands and will be taking the lead and following up with her chore worker in [place]. Office Visits / Consults: [id number] IP Consult L3
[2019-10-14 15:00] VITALS: BP 134/92; PULSE 112; RESP 16; TEMP 36.8; O2SAT 100
--- NOTE | 2019-10-14 16:04 | PCM.PN.HOSP ---
Patient Problems: Active and Suspected Problems Acute pancreatitis (Acute) Chest wall pain (Acute) Acute abdominal pain (Acute) Reason for Visit: Follow-up on acute pancreatitis. Subjective: Patient was seen and examined. Her abdominal pain is improved. No nausea. No fevers or chills. Objective: Physical exam: General: Alert, Oriented x3, Cooperative, No apparent distress HEENT: Atraumatic, PERRLA, EOMI, Normocephalic Oral: Moist Mucosa Neck: Supple Lungs: Clear to auscultation, Normal air movement Cardiovascular: Regular rate, Regular Rhythm, Normal S1, Normal S2, No murmurs Abdomen: Bowel Sounds Present, Soft, Non-Distended, Tender - improved in the epigastric region, no guarding or rebound tenderness Extremities: No edema, Capillary Refill Less than 3 Seconds Skin: No rashes Musculoskeletal: No Tenderness to Palpation of Joints or Extremities Lymphatic: No Cervical, Supraclavicular, or Inguinal Adenopathy Neurological: Cranial nerves II-XII grossly intact Psych/Mental Status: Normal Affect, Appropriate Vitals/I&O's: Vital Signs Temp Pulse Resp BP Pulse Ox 98.3 F 112 H 16 134/92 H 100 10/14/19 15:00 10/14/19 15:00 10/14/19 15:00 10/14/19 15:00 10/14/19 15:00 Oxygen Flow Rate (L/min) 2 Oxygen Delivery Method Room Air Weight: 80.195 kg Body Mass Index (BMI) 27.6 Intake and Output for Last 24 Hours 10/12/19 10/13/19 10/14/19 23:59 23:59 23:59 Intake Total 2241.66 / 2241.66 2190.58 / 2190.58 Output Total 200 / 200 1800 / 1800 Balance 2041.66 / 2041.66 390.58 / 390.58 Laboratory Results 10/13/19 17:17: POC Glucose 110 10/13/19 23:57: POC Glucose 119 H 10/14/19 05:15: WBC 9.9, RBC 4.07 L, Hgb 12.4, Hct 38.0, MCV 93.4, MCH 30.5, MCHC 32.6, RDW Std Deviation 45.9 H, RDW Coeff of Jose M 13.4, Plt Count 218, MPV 10.4, Immature Gran % (Auto) 0.400, Neut % (Auto) 80.1 H, Lymph % (Auto) 13.1 L, [place] % (Auto) 6.0, Eos % (Auto) 0.3, Baso % (Auto) 0.1, Absolute Neuts (auto) 7.9 H, Absolute Lymphs (auto) 1.29, Nucleated RBC % 0 10/14/19 05:15: Sodium 136, Potassium 3.3 L, Chloride 100, Carbon Dioxide 26.0, Anion Gap 10, BUN 3 L, Creatinine 0.66, Estim Creat Clear Calc 101.37, Est GFR (MDRD) Af Amer 122, Est GFR (MDRD) Non-Af 101, BUN/Creatinine Ratio 4.5 L, Glucose 106, Calcium 8.8, Total Bilirubin 0.60, AST 24, ALT 36, Alkaline Phosphatase 70, Total Protein 7.9, Albumin 3.8, Globulin 4.1, Albumin/Globulin Ratio 0.9, Lipase 856 H 10/14/19 06:10: POC Glucose 122 H 10/14/19 12:00: POC Glucose 109 Current Medications Acetaminophen (Tylenol) 650 mg PO Q6H PRN PRN PRN Reason: Pain Score 1-10/Temp > 100.7 F Last Admin: 10/14/19 15:05 Dose: 650 mg Documented by: Al Hydroxide/Mg Hydroxide (Mylanta Ii) 30 ml PO Q4H PRN PRN PRN Reason: DYSPEPSIA Last Admin: 10/13/19 20:01 Dose: 30 ml Documented by: Amlodipine Besylate (Norvasc) 5 mg PO DAILY VICKIE Last Admin: 10/14/19 08:46 Dose: 5 mg Documented by: Dextrose (D50w Syringe) 0 gm IV X1 PRN; Protocol PRN Reason: Hypoglycemia Glucagon () 1 mg IM .X1 PRN PRN Reason: Hypoglycemia Hydralazine HCl (Apresoline Iv) 5 mg IV Q6H PRN PRN PRN Reason: BLOOD PRESSURE Last Admin: 10/13/19 17:42 Dose: 5 mg Documented by: Sodium Chloride () 250 mls @ 15 mls/hr IV .[id number] PRN PRN Reason: Saline Flush Last Infusion: 10/14/19 14:00 Dose: 0 mls/hr Documented by: Sodium Chloride () 250 mls @ 15 mls/hr IV .[id number] PRN PRN Reason: Additional IVPB Infusion Sodium Chloride () 1,000 mls @ 100 mls/hr IV .Q10H VICKIE Last Admin: 10/14/19 15:57 Dose: 100 mls/hr Documented by: Pantoprazole Sodium 40 mg/ (Sodium Chloride) 110 mls @ 330 mls/hr IV Q12 VICKIE Last Infusion: 10/14/19 09:06 Dose: Infused Documented by: Insulin Human Lispro (Humalog Kwikpen (Bkc)) 0 unit SC Q6 VICKIE; Protocol Last Admin: 10/14/19 12:00 Dose: Not Given Documented by: Lisinopril (Zestril) 40 mg PO DAILY [facility] Last Admin: 10/14/19 08:46 Dose: 40 mg Documented by: Morphine Sulfate () 4 mg IV Q3H PRN PRN PRN Reason: Pain Score 6-10/10 Last Admin: 10/14/19 15:57 Dose: 4 mg Documented by: Ondansetron HCl (Zofran) 4 mg IV Q8H PRN PRN PRN Reason: NAUSEA/VOMITING Last Admin: 10/14/19 06:00 Dose: 4 mg Documented by: Sodium Chloride () 10 - 40 ml IV UD PRN PRN Reason: SALINE FLUSH Last Admin: 10/14/19 06:00 Dose: 10 ml Documented by: STROKE Vital Signs/Narrative: Vital Signs Temp Pulse Resp BP Pulse Ox 10/14/19 15:00 98.3 F 112 H 16 134/92 H 100 Medical Necessity - Tobacco Use Smoking Status: Former smoker Tobacco Use: Non-smoker Assessment/Plan All Active Problems Acute pancreatitis (Acute) Chest wall pain (Acute) Acute abdominal pain (Acute) Mid abdominal pain (Acute) Pancreatitis (Acute) 49 year old F with past medical history of 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 1. Acute recurrent pancreatitis, history of alcoholic pancreatitis Patient has history of alcohol use disorder although she says she last drank alcohol a week ago. Admitting lipase was more than 1600 N.p.o., IV fluids, pain control, IV PPI 2. Abdominal mass?pancreatic/duodenal mass seen on CT scan MRCP is negative, general surgery consulted 3. Hypertension, uncontrolled, Started on amlodipine yesterday, Will resume lisinopril as renal function is improved elevated blood pressure. 4. Acute kidney injury, prerenal, secondary dehydration Admitting creatinine was 1.04, creatinine today 0.66 Continue on IV fluids, Repeat blood work in a.m. 5. GERD, on PPI 6. Depression, on Lexapro 7. DVT PPx- early ambulation Inpatient E&M: 54415 Subs Hosp L2
[2019-10-14 17:56] LABS: Bedside Glucose 97 mg/dL (70-110)
[2019-10-14] MEDS: Mag Hydrox/Al Hydrox/Simeth 30 ML UDC PO (19:52)
[2019-10-14 19:55] VITALS: BP 142/89; PULSE 98; RESP 16; TEMP 37.1; O2SAT 100
[2019-10-15] LABS: Bedside Glucose 93 mg/dL (70-110)
[2019-10-15] MEDS: 0.9% Normal Saline 1,000 ML 100 ML IV ×2 (02:04→11:27)
[2019-10-15 02:07] VITALS: BP 144/90; PULSE 98; RESP 16; TEMP 37.2; O2SAT 100
[2019-10-15] MEDS: Morphine 4 MG/ML Syringe IV ×2 (03:51→08:49)
[2019-10-15] MEDS: 0.9% Saline Lock 10 ML Syringe IV ×4 (03:51→14:02)
[2019-10-15 06:36] LABS: Absolute Lymphocyte Count 1.48 X10^3/uL (0.83-4.51); Absolute Neutrophil Count 6.4 X10^3/uL (2.0-7.7); Basophil# 0.01 X10^3/uL; Basophil% 0.1 % (0-1); Eosinophil# 0.08 X10^3/uL; Eosinophils% 0.9 % (0-5); Hematocrit 34.9 % (37-47); Hemoglobin 11.4 g/dL (12.0-15.0); Lymphocyte # 1.48 X10^3/ul (4.0); Lymphocyte % 17.2 % (19-41); Mean Corp Hgb Conc 32.7 g/dL (32-36); Mean Corpuscular Hgb 31.2 pg (27.0-32.0); Mean Corpuscular Volume 95.6 fL (81-99); Mean Platelet Vol. 10.5 fl (6.2-12.0); Monocyte# 0.57 X10^3/uL; Monocyte% 6.6 % (0-10); NRBC Flagged by Analyzer 0 % (0-5); Neutrophil # 6.44 X10^3/uL (2.7-7.7); Platelet Count 201 K/mm3 (150-450); RBC Distribution Width CV 13.4 % (11.6-14.6); RBC Distribution Width SD 47.3 fl (35.1-43.9); Red Blood Count 3.65 M/mm3 (4.2-5.4); White Blood Count 8.6 K/mm3 (4.4-11.0)
[2019-10-15] MEDS: Acetaminophen 325 MG Tablet 650 MG PO ×2 (06:43→13:59)
[2019-10-15] MEDS: Ondansetron 4 MG/2 ML Vial IV (06:43)
[2019-10-15 07:01] LABS: Bedside Glucose 78 mg/dL (70-110)
[2019-10-15 07:05] LABS: ALB/GLOB Ratio 0.8 RATIO (0.9-2.4); AST(SGOT) 15 U/L (15-37); Alanine Aminotransfer ALT/SGPT 25 U/L (13-56); Albumin, Serum 3.2 g/dL (3.2-5.0); Alkaline Phosphatase 58 U/L (45-117); Anion Gap 8 (5-15); BUN 4 mg/dL (7-18); BUN/Creat Ratio 6.5 RATIO (10-20); Calcium,Total 8.7 mg/dL (8.5-10.1); Chloride 99 mmol/L (98-107); Creatinine, Serum 0.62 mg/dL (0.55-1.02); EST Glomerular Filtration Rate 110 mL/min (>60); Est Glom Filt Rate - Afr Amer 133 mL/min (>60); Estimated Creatinine Clearance 107.91 ml/min; Globulin 3.8 g/dL (2.2-4.2); Glucose 92 mg/dL (74-106); Potassium 3.3 mmol/L (3.5-5.1); Sodium Level 135 mmol/L (136-145)
[2019-10-15 08:08] VITALS: BP 126/89; PULSE 90; RESP 16; TEMP 37.1; O2SAT 97
[2019-10-15] MEDS: Lisinopril 40 MG Tablet PO (08:51)
[2019-10-15] MEDS: amLODIPine 5 MG Tablet PO (08:51)
--- NOTE | 2019-10-15 12:13 | PCM.PN.SRG ---
Patient Problems: Active and Suspected Problems Acute pancreatitis (Acute) Chest wall pain (Acute) Acute abdominal pain (Acute) Subjective: Patient feels slightly more distended today she did have some nausea and vomiting this morning. Pain really has not significantly improved. Objective: Abdomen is distended but soft there is no rebound guarding or peritoneal signs identified. - Physical Exam Vitals/I&O's: Vital Signs Temp Pulse Resp BP Pulse Ox 98.7 F 90 16 126/89 H 97 10/15/19 08:08 10/15/19 08:08 10/15/19 08:08 10/15/19 08:08 10/15/19 08:08 Oxygen Flow Rate (L/min) 2 Oxygen Delivery Method Room Air Weight: 176 lb 12.795 oz Body Mass Index (BMI) 27.6 Intake and Output for Last 24 Hours 10/13/19 10/14/19 10/15/19 23:59 23:59 23:59 Intake Total 2241.66 / 2241.66 3300.58 / 3300.58 1900.00 / 1900.00 Output Total 200 / 200 2400 / 2400 400 / 400 Balance 2041.66 / 2041.66 900.58 / 900.58 1500.00 / 1500.00 Laboratory Results 10/14/19 12:00: POC Glucose 109 10/14/19 17:45: POC Glucose 97 10/14/19 23:53: POC Glucose 93 10/15/19 06:07: WBC 8.6, RBC 3.65 L, Hgb 11.4 L, Hct 34.9 L, MCV 95.6, MCH 31.2, MCHC 32.7, RDW Std Deviation 47.3 H, RDW Coeff of Jose M 13.4, Plt Count 201, MPV 10.5, Immature Gran % (Auto) 0.200, Neut % (Auto) 75.0 H, Lymph % (Auto) 17.2 L, [place] % (Auto) 6.6, Eos % (Auto) 0.9, Baso % (Auto) 0.1, Absolute Neuts (auto) 6.4, Absolute Lymphs (auto) 1.48, Nucleated RBC % 0 10/15/19 06:07: Sodium 135 L, Potassium 3.3 L, Chloride 99, Carbon Dioxide 28.0, Anion Gap 8, BUN 4 L, Creatinine 0.62, Estim Creat Clear Calc 107.91, Est GFR (MDRD) Af Amer 133, Est GFR (MDRD) Non-Af 110, BUN/Creatinine Ratio 6.5 L, Glucose 92, Calcium 8.7, Total Bilirubin 0.60, AST 15, ALT 25, Alkaline Phosphatase 58, Total Protein 7.0, Albumin 3.2, Globulin 3.8, Albumin/Globulin Ratio 0.8 L 10/15/19 06:41: POC Glucose 78 Current Medications Acetaminophen (Tylenol) 650 mg PO Q6H PRN PRN PRN Reason: Pain Score 1-10/Temp > 100.7 F Last Admin: 10/15/19 06:43 Dose: 650 mg Documented by: Al Hydroxide/Mg Hydroxide (Mylanta Ii) 30 ml PO Q4H PRN PRN PRN Reason: DYSPEPSIA Last Admin: 10/14/19 19:52 Dose: 30 ml Documented by: Amlodipine Besylate (Norvasc) 5 mg PO DAILY VICKIE Last Admin: 10/15/19 08:51 Dose: 5 mg Documented by: Dextrose (D50w Syringe) 0 gm IV X1 PRN; Protocol PRN Reason: Hypoglycemia Glucagon () 1 mg IM .X1 PRN PRN Reason: Hypoglycemia Hydralazine HCl (Apresoline Iv) 5 mg IV Q6H PRN PRN PRN Reason: BLOOD PRESSURE Last Admin: 10/13/19 17:42 Dose: 5 mg Documented by: Sodium Chloride () 250 mls @ 15 mls/hr IV .[id number] PRN PRN Reason: Saline Flush Last Infusion: 10/14/19 14:00 Dose: 0 mls/hr Documented by: Sodium Chloride () 250 mls @ 15 mls/hr IV .[id number] PRN PRN Reason: Additional IVPB Infusion Sodium Chloride () 1,000 mls @ 100 mls/hr IV .Q10H VICKIE Last Admin: 10/15/19 11:27 Dose: 100 mls/hr Documented by: Pantoprazole Sodium 40 mg/ (Sodium Chloride) 110 mls @ 330 mls/hr IV Q12 VICKIE Last Infusion: 10/15/19 09:17 Dose: Infused Documented by: Insulin Human Lispro (Humalog Kwikpen (Bkc)) 0 unit SC ACHS VICKIE; Protocol Iopamidol (Contrast Allergy Check) 0 ml IV X1 VICKIE Lisinopril (Zestril) 40 mg PO DAILY VICKIE Last Admin: 10/15/19 08:51 Dose: 40 mg Documented by: Morphine Sulfate () 4 mg IV Q3H PRN PRN PRN Reason: Pain Score 6-10/10 Last Admin: 10/15/19 08:49 Dose: 4 mg Documented by: Ondansetron HCl (Zofran) 4 mg IV Q8H PRN PRN PRN Reason: NAUSEA/VOMITING Last Admin: 10/15/19 06:43 Dose: 4 mg Documented by: Sodium Chloride () 10 - 40 ml IV UD PRN PRN Reason: SALINE FLUSH Last Admin: 10/15/19 08:51 Dose: 10 ml Documented by: Medical Necessity - Tobacco Use Smoking Status: Former smoker Tobacco Use: Non-smoker Assessment/Plan All Active Problems Acute pancreatitis (Acute) Chest wall pain (Acute) Acute abdominal pain (Acute) Mid abdominal pain (Acute) Pancreatitis (Acute) At this point still conservative measurements are the best. Have a feeling that she is going to make a very slow recovery.
--- NOTE | 2019-10-15 12:15 | NURSING ---
Pt off unit for CT of neck
--- NOTE | 2019-10-15 12:19 | CT_ITS ---
STUDY: CT SOFT TISSUE NECK WITH CONTRAST REASON FOR EXAM: Female, 49 years old. LYMPHADENOPATHY, SWELLING OF JAW RADIATION DOSAGE (If Supplied By Facility): CTDIvol = ( 18.13 ) mGy, DLP = ( 516.37 ) mGycm TECHNIQUE: The patient was scanned in a multi-detector CT scanner. High resolution transaxial imaging was performed following intravenous administration of 100 mL Isovue 370. Sagittal and coronal images were reconstructed. Individualized dose optimization techniques were used for this CT. COMPARISON: None. FINDINGS: Normal bilateral parotid glands. Normal bilateral tank cooper spaces. Normal bilateral parapharyngeal spaces. Normal bilateral carotid spaces. Normal bilateral sublingual and submandibular glands and spaces. Normal visualized nasopharynx. Normal retropharyngeal space. Normal perivertebral space. Normal visualized bilateral faucial tonsils. The visualized tongue, tongue base and oropharynx are normal. There are 2 small well-defined lymph nodes overlying the left masseter muscle. A small lymph node is also seen overlying the right masseter muscle. The largest measures 1.2 cm. Small lymph nodes are also seen in the posterior triangle of the right side of the neck. There is no demonstrated solid or cystic mass lesion. There is no abnormal contrast enhancement. Normal epiglottis, bilateral vallecula and hypopharynx. The pre-epiglottic and paraglottic adipose spaces are normal. Normal visualized bilateral piriform sinuses, aryepiglottic folds, vocal cords, and arytenoid-cricoid articulations. Normal subglottic trachea. Normal bilateral lobes of the thyroid gland. Normal visualized pulmonary apices. Normal visualized paranasal sinuses. Normal visualized cervical spine. CT/Soft Tissue Neck WITH Contrast IMPRESSION: Small bilateral lymph nodes overlying the right and left masseter muscles as described. Electronically Signed: Adrien Briseno, at 13:01 EDT , Service support ,
--- NOTE | 2019-10-15 12:25 | NURSING ---
pt off unit for CT of neck
--- NOTE | 2019-10-15 12:27 | NURSING ---
No nausea or vomiting this AM for day shift. production supervisor off shift reported pt c/o nausea this AM and was given zofran. No emesis reported to staff
--- NOTE | 2019-10-15 13:30 | NURSING ---
This RN noticed soft tissue of neck CT was cancelled after was collected. Called CT room and notified Andrés that under reports only see that it was cancelled and want to be sure it will be read as is wanting to review and possibly d/c patient. Understanding verbalized and states that he will be sure that it is corrected.
[2019-10-15 13:55] VITALS: BP 133/86; PULSE 98; RESP 16; TEMP 36.8; O2SAT 99
[2019-10-15] MEDS: Morphine 2 MG/ML Syringe 1 MG IV (15:12)
--- NOTE | 2019-10-15 16:17 | PCM.DC ---
- Discharge Diagnoses Current Active Problems: Current Active and Chronic Problems Acute pancreatitis (Acute) Chest wall pain (Acute) Acute abdominal pain (Acute) Reason(s) for Visit for Discharge Instructions: Acute pancreatitis You will use the following diet at home:: Full liquid Your food should be the consistency of: Regular Discharge Activity: Return to Normal Activity Additional Instructions: Take note of changes to your medications. You should continue on a clear liquid/full liquid diet. Advance your diet every 2 days as you can tolerate. Take your pantoprazole twice a day. Follow-up with your broadcast engineer within 2 weeks to follow-up on the pancreatic mass seen on CT scan of abdomen. Allergies/Adverse Reactions: Allergies venom-honey bee [bee venom (honey bee)] Allergy (Verified 10/13/19 05:26) Unknown Medications to take at Discharge Lisinopril 40 mg PO DAILY 10/18/18 Omeprazole 40 mg PO DAILY 10/18/18 Ondansetron [Zofran Odt] 8 mg PO Q8H PRN PRN #10 tab 09/22/19 Acetaminophen [Tylenol Tablet] 650 mg PO Q6H PRN PRN tablet 10/15/19 Amlodipine [Norvasc] 5 mg PO DAILY 30 Days #30 tab 10/15/19 Escitalopram Oxalate [Lexapro] 40 mg PO BID #0 10/15/19 Mag Hydrox/Al Hydrox/Simeth [Mylanta II] 30 ml PO Q4H PRN PRN udc 10/15/19 Oxycodone [Oxyir] 5 mg PO Q6H PRN PRN 3 Days #10 tablet 10/15/19 The following prescriptions were given: Amlodipine [Norvasc] 5 mg PO DAILY 30 Days #30 tab Transmission Status: Pending to [facility] Oxycodone [Oxyir] 5 mg PO Q6H PRN PRN 3 Days #10 tablet PRN Reason: Pain Score 6-10/10 Transmission Status: Sent to [facility] Primary Care Physician: Alexis Martinez MD [Primary Care Provider] - Please follow up with your Primary Care Physician in: within 1-2 weeks Test Results: Test results from this visit will be discussed in further detail at your follow-up appointment, if applicable. When: Follow-up with your broadcast engineer within 1-2 weeks. Proposed Discharge Date: 10/15/19
--- NOTE | 2019-10-15 16:26 | DS.PCM_ITS ---
Discharge Date and Diagnosis - Problem List Patient Problems: Active and Suspected Problems Acute pancreatitis (Acute) Chest wall pain (Acute) Acute abdominal pain (Acute) Date of Admission: 10/13/19 Date of Discharge: 10/15/19 - Primary Discharge Diagnosis Acute Problems: Active Problems Acute pancreatitis (Acute) Pancreatic/duodenal mass Uncontrolled Hypertension Acute kidney injury, prerenal secondary to dehydration Hypokalemia - Secondary Discharge Diagnosis Chronic Problems: Chronic Problems Tobacco dependence (Chronic) Alcoholism (Chronic) Mass of pancreas (Chronic) Hospital Course and Treatment Imaging Results: 10/15/19 12:19 CT Neck [Soft Tissue Neck WITH Contrast] [CT] Routine Clinical Impression(s) from Imaging Studies Chest X-Ray 10/13/19 05:24 IMPRESSION: Normal x-ray examination of the chest. Electronically Signed: Dirk Winters MD at 6:44 EDT , Service support , Abdomen/Pelvis CT 10/13/19 06:15 IMPRESSION: Enlargement of the head of the pancreas with surrounding fat infiltration, suspicious for recurrent acute pancreatitis. No demonstrated pseudocyst or ductal dilatation. 2.5 cm nodular structure protruding into the lumen of the duodenal sweep may represent a growing pancreatic mass or an ampullary mass. Consider follow-up MRCP or upper endoscopy. Fatty liver. Colonic diverticulosis, without evidence for acute diverticulitis. Previous hysterectomy. No evidence for appendicitis. No evidence for bowel obstruction or ileus. Electronically Signed: Wilmer Resendiz MD at 7:33 EDT , Service support , Chest CTA 10/13/19 06:40 IMPRESSION: Normal CTA chest examination, without a demonstrated pulmonary embolism, aortic aneurysm, aortic dissection. No evidence for acute cardiopulmonary pathology. Electronically Signed: Wilmer Resendiz MD at 7:22 EDT , Service support , MRCP 10/13/19 08:32 IMPRESSION: Normal MR Cholangiopancreatography (MRCP). Electronically Signed: Darrel Boothe MD at 11:11 EDT Tel , Service support , Soft Tissue Neck CT 10/15/19 12:19 IMPRESSION: Small bilateral lymph nodes overlying the right and left masseter muscles as described. 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 1. Acute recurrent pancreatitis, history of alcoholic pancreatitis. Admitting lipase was more than 1600. He was managed with conservative treatment, kept n.p.o., IV fluids, pain control, IV PPI. She gradually was advanced in her diet. Tolerated full liquid diet at discharge. 2. Abdominal mass?pancreatic/duodenal mass seen on CT scan, MRCP is negative, general surgery consulted. Commended patient follows up with a primary security intelligence analyst for endoscopic ultrasound work-up of probable pancreatic mass. 3. Hypertension, uncontrolled, started on amlodipine during the hospital stay. Continued on home lisinopril 4. Acute kidney injury, prerenal, secondary dehydration. Admitting creatinine was 1.04, creatinine was normal at discharge. 5. GERD, on PPI 6. Depression, on Lexapro 7. Hypokalemia, replaced, recommended recheck within 1 week. Patient Problems: Active and Suspected Problems Acute pancreatitis (Acute) Chest wall pain (Acute) Acute abdominal pain (Acute) Subjective: On the day of discharge, patient was seen and examined. Pain is improved. She is able to tolerate jellos and apple sauce Objective: Physical exam: General: Alert, Oriented x3, Cooperative, No apparent distress HEENT: Atraumatic, PERRLA, EOMI, Normocephalic Oral: Moist Mucosa Neck: Supple Lungs: Clear to auscultation, Normal air movement Cardiovascular: Regular rate, Regular Rhythm, Normal S1, Normal S2, No murmurs Abdomen: Bowel Sounds Present, Soft, Non-Distended, Tender - improved in the epigastric region, no guarding or rebound tenderness Extremities: No edema, Capillary Refill Less than 3 Seconds Skin: No rashes Musculoskeletal: No Tenderness to Palpation of Joints or Extremities Lymphatic: No Cervical, Supraclavicular, or Inguinal Adenopathy Neurological: Cranial nerves II-XII grossly intact Psych/Mental Status: Normal Affect, Appropriate - Physical Exam Vitals/I&O's: Vital Signs Temp Pulse Resp BP Pulse Ox 98.2 F 98 16 133/86 H 99 10/15/19 13:55 10/15/19 13:55 10/15/19 13:55 10/15/19 13:55 10/15/19 13:55 Oxygen Flow Rate (L/min) 2 Oxygen Delivery Method Room Air Weight: 80.195 kg Body Mass Index (BMI) 27.6 Intake and Output for Last 24 Hours 10/13/19 10/14/19 10/15/19 23:59 23:59 23:59 Intake Total 2241.66 / 2241.66 3300.58 / 3300.58 1980.00 / 1980.00 Output Total 200 / 200 2400 / 2400 400 / 400 Balance 2041.66 / 2041.66 900.58 / 900.58 1580.00 / 1580.00 Laboratory Results 10/14/19 17:45: POC Glucose 97 10/14/19 23:53: POC Glucose 93 10/15/19 06:07: WBC 8.6, RBC 3.65 L, Hgb 11.4 L, Hct 34.9 L, MCV 95.6, MCH 31.2, MCHC 32.7, RDW Std Deviation 47.3 H, RDW Coeff of Jose M 13.4, Plt Count 201, MPV 10.5, Immature Gran % (Auto) 0.200, Neut % (Auto) 75.0 H, Lymph % (Auto) 17.2 L, [place] % (Auto) 6.6, Eos % (Auto) 0.9, Baso % (Auto) 0.1, Absolute Neuts (auto) 6.4, Absolute Lymphs (auto) 1.48, Nucleated RBC % 0 10/15/19 06:07: Sodium 135 L, Potassium 3.3 L, Chloride 99, Carbon Dioxide 28.0, Anion Gap 8, BUN 4 L, Creatinine 0.62, Estim Creat Clear Calc 107.91, Est GFR (MDRD) Af Amer 133, Est GFR (MDRD) Non-Af 110, BUN/Creatinine Ratio 6.5 L, Glucose 92, Calcium 8.7, Total Bilirubin 0.60, AST 15, ALT 25, Alkaline Phosphatase 58, Total Protein 7.0, Albumin 3.2, Globulin 3.8, Albumin/Globulin Ratio 0.8 L 10/15/19 06:41: POC Glucose 78 Current Medications Acetaminophen (Tylenol) 650 mg PO Q6H PRN PRN PRN Reason: Pain Score 1-10/Temp > 100.7 F Last Admin: 10/15/19 13:59 Dose: 650 mg Documented by: Al Hydroxide/Mg Hydroxide (Mylanta Ii) 30 ml PO Q4H PRN PRN PRN Reason: DYSPEPSIA Last Admin: 10/14/19 19:52 Dose: 30 ml Documented by: Amlodipine Besylate (Norvasc) 5 mg PO DAILY [facility] Last Admin: 10/15/19 08:51 Dose: 5 mg Documented by: Dextrose (D50w Syringe) 0 gm IV X1 PRN; Protocol PRN Reason: Hypoglycemia Glucagon () 1 mg IM .X1 PRN PRN Reason: Hypoglycemia Hydralazine HCl (Apresoline Iv) 5 mg IV Q6H PRN PRN PRN Reason: BLOOD PRESSURE Last Admin: 10/13/19 17:42 Dose: 5 mg Documented by: Sodium Chloride () 250 mls @ 15 mls/hr IV .[id number] PRN PRN Reason: Saline Flush Last Infusion: 10/14/19 14:00 Dose: 0 mls/hr Documented by: Sodium Chloride () 250 mls @ 15 mls/hr IV .[id number] PRN PRN Reason: Additional IVPB Infusion Sodium Chloride () 1,000 mls @ 100 mls/hr IV .Q10H VICKIE Last Infusion: 10/15/19 14:00 Dose: 100 mls/hr Documented by: Pantoprazole Sodium 40 mg/ (Sodium Chloride) 110 mls @ 330 mls/hr IV Q12 VICKIE Last Infusion: 10/15/19 09:17 Dose: Infused Documented by: Lisinopril (Zestril) 40 mg PO DAILY [facility] Last Admin: 10/15/19 08:51 Dose: 40 mg Documented by: Ondansetron HCl (Zofran) 4 mg IV Q8H PRN PRN PRN Reason: NAUSEA/VOMITING Last Admin: 10/15/19 06:43 Dose: 4 mg Documented by: Sodium Chloride () 10 - 40 ml IV UD PRN PRN Reason: SALINE FLUSH Last Admin: 10/15/19 14:02 Dose: 10 ml Documented by: Discharge Diet: Low fat/ Low Cholesterol, 2000 mg Sodium Diet Discharge Activity: Return to Normal Activity Home Medications: Medications to take at Discharge Lisinopril 40 mg PO DAILY 10/18/18 Omeprazole 40 mg PO DAILY 10/18/18 Ondansetron [Zofran Odt] 8 mg PO Q8H PRN PRN #10 tab 09/22/19 Acetaminophen [Tylenol Tablet] 650 mg PO Q6H PRN PRN tab 10/15/19 Amlodipine [Norvasc] 5 mg PO DAILY 30 Days #30 tab 10/15/19 Escitalopram Oxalate [Lexapro] 40 mg PO BID #0 10/15/19 Mag Hydrox/Al Hydrox/Simeth [Mylanta II] 30 ml PO Q4H PRN PRN udc 10/15/19 Oxycodone [Oxyir] 5 mg PO Q6H PRN PRN 3 Days #10 tab 10/15/19 Following Prescrptions Were Given to Patient: Amlodipine [Norvasc] 5 mg PO DAILY 30 Days #30 tab Transmission Status: Received by [facility] Oxycodone [Oxyir] 5 mg PO Q6H PRN PRN 3 Days #10 tab PRN Reason: Pain Score 6-10/10 Transmission Status: Received by [facility] Primary Care Physician: Alexis Martinez MD [Primary Care Provider] - Please follow up with your Primary Care Physician in: within 1-2 weeks When: Follow-up with your security intelligence analyst within 1-2 weeks. Disposition: Home Minutes spent on discharge:: 45 Patient Condition:: Stable Medical Necessity - Tobacco Use Smoking Status: Former smoker Tobacco Use: Non-smoker Meaningful Use Info Meaningful Use Diagnoses (Choose all that apply): None applicable Inpatient E&M: 46325 Disch Hosp
== END 2019-10-15 17:32 | disposition home or self-care (01) | DRG 282 ==
LOC: ED 06:31 → MS3 10-14 06:59
PROVIDERS: Admitting Provider Internal Medicine; Emergency Provider Emergency Medicine; PCP Family Medicine; Visit Provider Internal Medicine
DX: K85.90 Acute pancreatitis without necrosis or infection, unspecified (principal); K86.9 Disease of pancreas, unspecified; F10.20 Alcohol dependence, uncomplicated; N17.9 Acute kidney failure, unspecified; E86.0 Dehydration; E87.6 Hypokalemia; I10 Essential (primary) hypertension; K21.9 Gastro-esophageal reflux disease without esophagitis; F32.9 Major depressive disorder, single episode, unspecified; F41.9 Anxiety disorder, unspecified; Z79.899 Other long term (current) drug therapy; Z87.891 Personal history of nicotine dependence
CPT/HCPCS: 36415; 70491; 71045; 71275; 74177; 74181; 80048; 80053; 80076; 82962; 83690; 84484; 85025; 93005; 97803; 99285; J7030; J7050; Q9967; A4216; J2405

== ENCOUNTER → 2019-12-06 13:38 | Outpatient (CLI) | payer MEDICAID, SELFPAY ==
[2019-10-13 08:25] VITALS: BMI 27.6
--- NOTE | 2019-12-06 13:40 | RAD_ITS ---
STUDY: X-RAY - CERVICAL SPINE REASON FOR EXAM: Female, 49 years old. radiculopathy, right arm pain x 2 months -- NKI TECHNIQUE: 6 view(s) of the cervical spine were obtained. COMPARISON: None FINDINGS: Normal anterior atlantoaxial articulation. Normal odontoid process. There is straightening of the normal cervical lordosis. There is multi-level endplate spondylosis. There is multi-level degenerative disc disease with multilevel disc space narrowing. Normal visualized intervertebral neuroforamina. The soft tissue structures are unremarkable. There is no demonstrated fracture of the cervical spine. RAD/Cerv Spine 4 or 5 Views IMPRESSION: Multilevel degenerative changes, no acute findings Electronically Signed: Christian Galeas MD at 18:27 EDT , Service support ,
== END ==
PROVIDERS: PCP Family Medicine; Referring Provider Chiropractor; Visit Provider Chiropractor
DX: M54.12 Radiculopathy, cervical region (principal)
CPT/HCPCS: 72050

== ENCOUNTER 2020-09-10 11:20 | Emergency (ER) | payer MEDICAID, SELFPAY ==
[2019-10-13 08:25] VITALS: BMI 27.6
[2020-09-10 11:23] VITALS: BP 147/100; PULSE 87; RESP 17; TEMP 36.7; O2SAT 98; BMI 29.8
--- NOTE | 2020-09-10 11:50 | EX.ED.VIS.EY ---
HPI History of Present Illness Chief Complaint: Eye Problem Informant: patient Onset/Context/Timing Location: Right Eye Onset: Yesterday Context: Gradual Onset (after I got my lashes done) Timing: Continuous Current Severity: Mild Maximum Severity: Mild Worsened by: nothing Relieved by: nothing Associated Symptoms Associated Symptoms - Eyes: Pain and Redness; Negative for Crusting, Drainage, Eyelid swelling, Itching and Photophobia History of injury: Uncertain (not that she knows of) Visual correction: None Narrative Narrative: Patient noticed this discomfort after she had her lash extensions placed, but states during the procedure she did not have any acute injury that she knows of. [facility] Medical History Hypertension Mass of pancreas Home Medications lisinopril 40 mg PO DAILY 10/18/18 [History Last Taken Unknown] Allergy/AdvReac Type Severity Reaction Status Date / Time venom-honey bee Allergy Unknown Verified 09/10/20 11:21 [bee venom (honey bee)] Social History Smoking Status: Former smoker ROS ROS ED Constitutional Constitutional ED: Denies chills or fever(s) Eyes Eyes: Reports as per HPI and eye pain ENT ENT ED: Denies ear pain, rhinorrhea or sore throat Neurologic Neurologic: Denies headache(s), paresthesias or weakness EXAM Physical Exam Const Vital Signs: 09/10/20 11:23 Temperature 98.1 F Temperature Source Temporal Pulse Rate 87 Respiratory Rate 17 Blood Pressure 147/100 H Blood Pressure Mean 115 Pulse Ox 98 Oxygen Delivery Method Room Air Positive well nourished and well developed General Appearance ED: well developed and NAD HEENT atraumatic; Negative for tenderness Mouth ED: Yes oral and palatal mucosa normal and Yes lips normal Mouth: oral and palatal mucosa normal and lips normal Eyes PERRL and EOMs intact bilaterally Conjunctiva: conjunctiva abnormal right injection (Temporal aspect only with a mild conjunctival swelling associated. No hemorrhage. No gross foreign body.) Cornea: cornea normal Slit Lamp: slit lamp exam performed with fluorescein, lids/lashes/lacrimal system normal appearing, conjunctiva/sclera other (Focal mild swelling and injection temporally right eye only otherwise normal no foreign body or defect) and anterior chamber normal appearing and normal depth Neuro oriented x3, CN's II-XII intact bilaterally and gait normal Sensorium / Orientation: alert Skin Lesions: no lesions Rashes: no rashes MDM MDM MDM Narrative Medical decision making narrative: My suspicion is that the patient's symptoms are related to minor either chemical or physical injury when she was having lashes placed since the symptoms started just after that. I see no major foreign bodies now, there are minuscule flecks of debris that move when the patient blinks, nothing on the cornea with any dye uptake. Patient's visual acuity is normal. We irrigated her eyes at the eyewash station and gave her bacitracin ophthalmic ointment, I advise her use it 2-3 times daily for the next 2 days or so, if she still has symptoms she should follow-up. Episcleritis and scleritis are in the differential diagnosis as I discussed with the patient, although she has no reason to have either 1 of those from her medical history. Discharge Plan Triage Chief Complaint: Eye Problem ED Provider: Nahum Barger Dx/Rx/DC Orders Clinical Impression: Acute conjunctivitis of right eye Instructions: ED Conjunctivitis, Nonspecific Prescriptions: No Action lisinopril 40 MG tablet 40 mg PO DAILY RF: 0 Primary Care Provider: Alexis Martinez Referrals: Iraida Anguiano MD [STAFF PHYSICIAN] - 3-5 Days if not improving Activity Restrictions/Additional Instructions: Use a thin ribbon of the eye ointment 2-3 times daily for the next 2 or 3 days, follow-up if no improvement Disposition Disposition: Home, self care
[2020-09-10] MEDS: Fluorescein 1 MG STRIP 1 STRIP RIGHT EYE (12:34)
[2020-09-10] MEDS: Tetracaine 0.5% Ophthalmic Bottle 2 DRP RIGHT EYE (12:35)
== END 2020-09-10 12:43 | disposition home or self-care (01) ==
PROVIDERS: Emergency Provider Emergency Medicine; PCP Family Medicine
DX: H10.31 Unspecified acute conjunctivitis, right eye (principal); I10 Essential (primary) hypertension; Z79.899 Other long term (current) drug therapy; Z87.891 Personal history of nicotine dependence
CPT/HCPCS: 99285; J7030

== ENCOUNTER → 2021-04-04 15:12 | Outpatient (CLI) | payer MEDICAID, SELFPAY ==
--- NOTE | 2021-04-04 15:25 | RAD_ITS ---
STUDY: X-RAY - CERVICAL SPINE REASON FOR EXAM: Female, 50 years old. CERVICAL RADICULOPATHY TECHNIQUE: XR Spine Cervical 4 or 5 Views COMPARISON: 8.320 FINDINGS: Normal anterior atlantoaxial articulation. The odontoid process is obscured by the overlying hard palate on the open mouth view. Therefore, it is not fully evaluated by plain film. There is straightening of the normal cervical lordosis. There is multi-level endplate spondylosis. There is multi-level degenerative disc disease with multilevel disc space narrowing. There is multi-level osseous foraminal stenosis. The soft tissue structures are unremarkable. RAD/Cerv Spine 4 or 5 Views IMPRESSION: There are degenerative changes as noted above. There is mild straightening of the normal cervical lordosis. This can suggest neck strain. Electronically Signed: Herberth Arriaza MD at 16:38 EST , Service support ,
== END ==
PROVIDERS: PCP Family Medicine; Referring Provider Chiropractor; Visit Provider Chiropractor
DX: M54.12 Radiculopathy, cervical region (principal)
CPT/HCPCS: 72050

== ENCOUNTER 2021-09-02 18:42 | Emergency (ER) | payer MEDICAID, SELFPAY ==
[2021-09-02] VITALS (7 sets, daily range): BP systolic 131–148; BP diastolic 80–102; PULSE 73–82; RESP 17–24; TEMP 36.6; O2SAT 98–100; BMI 33.7
--- NOTE | 2021-09-02 18:50 | EKG12_ITS ---
Test Reason : ALT LOC Blood Pressure : / mmHG Vent. Rate : 082 BPM Atrial Rate : 082 BPM P-R Int : 148 ms QRS Dur : 094 ms QT Int : 374 ms P-R-T Axes : 040 -02 026 degrees QTc Int : 436 ms Normal sinus rhythm Normal ECG Confirmed by VERNON ZEPEDA, LD ([id number]), publishing editor STEPHANIE VALLEJO ([id number]) on 09/03/2021 1:24:39 PM Referred By: BB Confirmed By:LD JUNIOR MD
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
--- NOTE | 2021-09-02 18:58 | NURSING ---
EMS reports CO level 18, during transport 14, on arrival to ED 10. During blood draw patient CO level 11. SPO2% is 100 on 15 lpm NRB.
[2021-09-02] MEDS: Ondansetron 4 MG/2 ML Vial IV (19:33)
--- NOTE | 2021-09-02 19:59 | ED.RN ---
reports new onset chest pain and tightness. called for ecg again.
--- NOTE | 2021-09-02 20:03 | ED.RN ---
CO down to [address] Barger aware of level and new onset chest pain. ECG ongoing now.
--- NOTE | 2021-09-02 20:04 | EKG12_ITS ---
Test Reason : REPEAT Blood Pressure : / mmHG Vent. Rate : 073 BPM Atrial Rate : 073 BPM P-R Int : 154 ms QRS Dur : 094 ms QT Int : 386 ms P-R-T Axes : 047 013 029 degrees QTc Int : 425 ms Normal sinus rhythm Normal ECG Confirmed by LD JUNIOR MD ([id number]), state editor STEPHANIE VALLEJO ([id number]) on 09/03/2021 1:27:13 PM Referred By: BB Confirmed By:LD JUNIOR MD
[2021-09-02] MEDS: Mag Hydrox/Al Hydrox/Simeth 30 ML UDC PO (20:10)
--- NOTE | 2021-09-02 20:24 | RAD_ITS ---
STUDY: X-RAY CHEST REASON FOR EXAM: Female, 51 years old. chest pain TECHNIQUE: AP portable COMPARISON: 10/13/2019 FINDINGS: The lungs are clear and expanded. There is no demonstrated pleural abnormality. Normal size heart. Normal mediastinum and brianna. Normal visualized pulmonary arteries. Normal visualized aortic arch and descending thoracic aorta. Normal visualized thoracic spine. Normal visualized ribs, clavicles, and shoulders. There is no demonstrated abnormality of the visualized soft tissue structures of the upper abdomen. No significant change since prior study RAD/Chest 1 View (Portable) IMPRESSION: Normal x-ray examination of the chest. Electronically Signed: Efren Arshad MD at 21:01 EDT ,
--- NOTE | 2021-09-02 21:20 | NURSING ---
4 CO level and pt is smoker
== END 2021-09-02 21:20 | disposition home or self-care (01) ==
PROVIDERS: Emergency Provider Emergency Medicine; PCP Family Medicine; Visit Provider Emergency Medicine
DX: T58.91XA Toxic effect of carbon monoxide from unspecified source, accidental (unintentional), initial encounter (principal); F17.210 Nicotine dependence, cigarettes, uncomplicated; I10 Essential (primary) hypertension; Z79.899 Other long term (current) drug therapy; R07.89 Other chest pain
CPT/HCPCS: 71045; 82375; 93005; 96374; 99285; A4216; J2405

== ENCOUNTER 2022-04-07 10:53 | Emergency (ER) | payer MEDICAID, SELFPAY ==
[2022-04-07 10:56] VITALS: BP 176/108; PULSE 133; RESP 16; TEMP 35.7; O2SAT 100; BMI 26.8
--- NOTE | 2022-04-07 11:32 | EX.ED.DYSGE1 ---
HPI <ESE Bhat - Last Filed: 04/07/22 13:00> History of Present Illness Chief Complaint: General Illness Narrative Narrative: 51-year-old female with history of hypertension, history of alcoholism, acute pancreatitis presents to the emergency department with 1 week of cough, viral-like illness. Patient states that she has been feeling this way for 7 days, she has had a cough, intermittent fever and chills. She states she has been unable to take her home medications because they are in her suitcase in her car however because of her illness she is too weak to go to the car and lift them up. Patient states today she has had enough and she is here for evaluation. She did have 6 episodes of vomitus today and feels dehydrated. Denies any fevers or chills today however this were happening earlier on the week. PFSH <ESE Bhat - Last Filed: 04/07/22 13:00> [facility] Medical History Hypertension Mass of pancreas Home Medications lisinopril 40 mg tablet 40 mg PO DAILY 10/18/18 [History Last Taken Unknown] ondansetron 4 mg disintegrating tablet 4 mg PO Q8H PRN nausea and vomiting #10 tabs 04/07/22 [Rx Last Taken Unknown] Allergy/AdvReac Type Severity Reaction Status Date / Time venom-honey bee Allergy Anaphylaxis Verified 04/07/22 10:55 [bee venom (honey bee)] Social History Smoking Status: Current every day smoker tobacco type: cigarettes ROS <ESE Bhat - Last Filed: 04/07/22 13:00> ROS ED ROS Narrative Constitutional: Negative for weight loss, weakness. Positive fever and chills Eyes: Negative for vision loss, vision change, double vision ENT: Negative for any sore throat, ear pain, congestion Cardiovascular: Negative for any chest pain, tightness, palpitations Respiratory: Negative for any sputum production, hemoptysis, dyspnea, dyspnea on exertion, orthopnea. Positive for cough Gastrointestinal: Negative for any abdominal pain, diarrhea, constipation, blood in stool, blood in vomit. Positive for nausea and vomiting : Negative for any urinary frequency, dysuria, retention, blood in urine Muscle skeletal: Negative for any muscle joint pain, stiffness, arthralgias, neck pain, back pain. Positive for myalgias Neurological: Negative for any headache, syncope, numbness or tingling, dizziness Skin: Negative for any rashes, lumps, itching, abrasions, lacerations Psychiatric: Negative for any depression, anxiety, stress, suicidal ideation, homicidal ideation Hematologic: Negative for any easy bruising, excessive bruising, easy bleeding Allergies: Negative for any eczema, hives, rash EXAM <ESE Bhat - Last Filed: 04/07/22 13:00> Physical Exam Narrative Exam Narrative: Vital signs reviewed. HEET: Head normocephalic atraumatic, TMs clear bilaterally. Posterior pharynx is clear, moist mucous membranes. Nares clear bilaterally. Neck: Supple with no lymphadenopathy or tenderness. No signs of meningismus, negative jolt sign. Cardiac: Tachycardic rate, no murmurs gallops or rubs, equal peripheral pulses bilaterally. Respiratory: Lungs clear to auscultation bilaterally. No chest tenderness. Abdomen: Soft, nontender, nondistended. No abdominal bruit or pulsatile masses. No hepatosplenomegaly Extremities: No peripheral edema, no signs of gross trauma or deformity. Active full range of motion of all extremities. Neuro: Cranial nerves II through XII intact, no focal neurological deficits. Skin: Clean dry and intact with no rash, purpura, petechiae, vesicles or pustules. Backs/flank: No CVA tenderness, no midline spinal tenderness, no deformity. Psych: Normal mood and affect. No SI, HI or acute psychosis. Const Vital Signs: 04/07/22 10:56 04/07/22 11:21 04/07/22 12:38 Temperature 96.3 F L 97.9 F Temperature Source Temporal Temporal Pulse Rate 133 H 99 Respiratory Rate 16 18 Respiratory Effort Normal Non-Labored Respiratory Pattern Normal Blood Pressure 176/108 H 130/83 H Blood Pressure Mean 130 98 Pulse Ox 100 100 Oxygen Delivery Method Room Air Room Air Positive well nourished and well developed General Appearance ED: well developed <Dr. Serafin Lofton DO - Last Filed: 04/07/22 13:21> Physical Exam Const Vital Signs: 04/07/22 10:56 04/07/22 11:21 04/07/22 12:38 Temperature 96.3 F L 97.9 F Temperature Source Temporal Temporal Pulse Rate 133 H 99 Respiratory Rate 16 18 Respiratory Effort Normal Non-Labored Respiratory Pattern Normal Blood Pressure 176/108 H 130/83 H Blood Pressure Mean 130 98 Pulse Ox 100 100 Oxygen Delivery Method Room Air Room Air [facility] <Mau Melgoza FLIGHT SURVEYOR-C - Last Filed: 04/07/22 13:00> [facility] Lab Data Labs: Laboratory Results - last 24 hr 04/07/22 04/07/22 04/07/22 11:40 12:00 12:00 WBC 7.3 RBC 4.73 Hgb 15.0 Hct 43.6 MCV 92.2 MCH 31.7 MCHC 34.4 RDW Std Deviation 47.4 H RDW Coeff of Jose M 13.9 Plt Count 242 MPV 10.5 Immature Gran % (Auto) 0.400 Neut % (Auto) 65.4 Lymph % (Auto) 27.8 [place] % (Auto) 6.1 Eos % (Auto) 0.0 Baso % (Auto) 0.3 Absolute Neuts (auto) 4.8 Absolute Lymphs (auto) 2.02 Nucleated RBC % 0 Sodium 137 Potassium 3.0 L Chloride 95 L Carbon Dioxide 20.0 L Anion Gap 22 H BUN 12 Creatinine 0.69 Estim Creat Clear Calc 94.86 Est GFR (MDRD) Af Amer 116 Est GFR (MDRD) Non-Af 95 BUN/Creatinine Ratio 17.4 Glucose 55 L Calcium 8.9 Total Bilirubin 0.40 AST 218 H ALT 158 H Alkaline Phosphatase 100 Total Protein 8.3 H Albumin 4.2 Globulin 4.1 Albumin/Globulin Ratio 1.0 Lipase 166 Urine Color Yellow Urine Clarity Clear Urine pH 6.0 Ur Specific Gray 1.025 Urine Protein 100 H Urine Glucose (UA) Normal Urine Ketones 150 A* Urine Occult Blood 50 H Urine Nitrite Negative Urine Bilirubin Negative Urine Urobilinogen Normal Ur Leukocyte Esterase Negative Urine RBC 0 SEEN Urine WBC 0 SEEN Ur Squamous Epith Cells 0 SEEN Urine Bacteria RARE Urine Mucus 0 SEEN Treatment and Re-Evaluation Narrative: Patient appears well, patient appears nontoxic, vital signs are stable. Patient presents to the emergency department 1 week of viral-like illness, nausea and vomiting started this morning. Patient states secondary to her weakness, she has not been taking her blood pressure medicine. Patient did receive a full work-up with some laboratory values. Patient's CBC was unremarkable, patient's chemistries show hypokalemia with a potassium of 3.0. Patient's anion gap was 22, patient's AST was 218 with an ALT of 158, patient's lipase was negative. Patient does have a history of acute pancreatitis and alcoholism states that when she was with her family a few days ago, she did drink heavily. At this time, patient is able to take by mouth fluids. She was given IV fluids, IV Zofran IV Toradol. Patient states she feels much better. She is instructed to stay away from alcohol and to follow-up outpatient. Her influenza test was negative. Patient's agreeable with the plan, she instructed return for any worsening symptoms. <Dr. Serafin Lofton, DO - Last Filed: 04/07/22 13:21> [facility] Lab Data Attestation: I reviewed the patient's lab results. Labs: Laboratory Results - last 24 hr 04/07/22 04/07/22 04/07/22 11:40 12:00 12:00 WBC 7.3 RBC 4.73 Hgb 15.0 Hct 43.6 MCV 92.2 MCH 31.7 MCHC 34.4 RDW Std Deviation 47.4 H RDW Coeff of Jose M 13.9 Plt Count 242 MPV 10.5 Immature Gran % (Auto) 0.400 Neut % (Auto) 65.4 Lymph % (Auto) 27.8 [place] % (Auto) 6.1 Eos % (Auto) 0.0 Baso % (Auto) 0.3 Absolute Neuts (auto) 4.8 Absolute Lymphs (auto) 2.02 Nucleated RBC % 0 Sodium 137 Potassium 3.0 L Chloride 95 L Carbon Dioxide 20.0 L Anion Gap 22 H BUN 12 Creatinine 0.69 Estim Creat Clear Calc 94.86 Est GFR (MDRD) Af Amer 116 Est GFR (MDRD) Non-Af 95 BUN/Creatinine Ratio 17.4 Glucose 55 L Calcium 8.9 Total Bilirubin 0.40 AST 218 H ALT 158 H Alkaline Phosphatase 100 Total Protein 8.3 H Albumin 4.2 Globulin 4.1 Albumin/Globulin Ratio 1.0 Lipase 166 Urine Color Yellow Urine Clarity Clear Urine pH 6.0 Ur Specific Gray 1.025 Urine Protein 100 H Urine Glucose (UA) Normal Urine Ketones 150 A* Urine Occult Blood 50 H Urine Nitrite Negative Urine Bilirubin Negative Urine Urobilinogen Normal Ur Leukocyte Esterase Negative Urine RBC 0 SEEN Urine WBC 0 SEEN Ur Squamous Epith Cells 0 SEEN Urine Bacteria RARE Urine Mucus 0 SEEN Treatment and Re-Evaluation Narrative: Patient appears well, patient appears nontoxic, vital signs are stable. Patient presents to the emergency department 1 week of viral-like illness, nausea and vomiting started this morning. Patient states secondary to her weakness, she has not been taking her blood pressure medicine. Patient did receive a full work-up with some laboratory values. Patient's CBC was unremarkable, patient's chemistries show hypokalemia with a potassium of 3.0. Patient's anion gap was 22, patient's AST was 218 with an ALT of 158, patient's lipase was negative. Patient does have a history of acute pancreatitis and alcoholism states that when she was with her family a few days ago, she did drink heavily. At this time, patient is able to take by mouth fluids. She was given IV fluids, IV Zofran IV Toradol. Patient states she feels much better. She is instructed to stay away from alcohol and to follow-up outpatient. Her influenza test was negative. Patient's agreeable with the plan, she instructed return for any worsening symptoms. I performed a history and physical examination of the patient and discussed management plan with the SET UP MACHINIST. I reviewed the SET UP MACHINIST's note and agree with the documented findings and plan of care. Patient with vomiting and dehydration 7 days of fatigue and cough. Blood work shows some hypoglycemia potassium of 3. She has been drinking alcohol with her family she explains why her AST and ALT elevated. She was given IV fluids Zofran and Toradol and is feeling better and is able to take p.o. fluids. Serafin Lofton DO, MS Discharge Plan Triage Chief Complaint: General Illness ED Midlevel Provider: Mau Melgoza ED Provider: Serafin Lofton Dx/Rx/DC Orders Clinical Impression: Viral syndrome, Nausea & vomiting, Acute dehydration, Elevated liver enzymes Instructions: ED Dehydration (Adult), ED Viral Syndrome (Adult), ED Vomiting (Adult) Prescriptions: New ondansetron 4 mg tablet,disintegrating 4 mg PO Q8H PRN (Reason: nausea and vomiting) Qty: 10 0RF No Action lisinopril 40 MG tablet 40 mg PO DAILY Label Comments: Take 1 tablet by mouth once daily. Primary Care Provider: Alexis Martinez Referrals: Alexis Martinez MD [Primary Care Provider] - Activity Restrictions/Additional Instructions: Use the Zofran as needed. Stay away from alcohol. Maintain oral hydration. Disposition Disposition: Home, Self Care Discharge Date/Time: 04/07/22 13:11
[2022-04-07] MEDS: 0.9% Normal Saline 1,000 ML 1000 ML IV (11:42)
[2022-04-07 11:44] LABS: Mucous, Urine 0 SEEN /hpf (<or=2+); Red Blood Cells-Urine 0 SEEN /hpf (0-5); Squamous Epithelial Cells - UA 0 SEEN /hpf (5-10); White Blood Cells 0 SEEN /hpf (0-5)
[2022-04-07 11:55] LABS: Color, Urine Yellow (Yellow); Glucose, Dipstick Normal (Normal); Leukocyte Esterase-Dipstick Negative /ul (Negative); Nitrite-Dipstick Negative (Negative); Occult Blood-Urine 50 /ul (Negative); Protein-Dipstick 100 mg/dl (Negative); Specific Gravity, Urine 1.025 (1.002-1.030); Urine Bilirubin Dipstick Negative (Negative); Urine Clarity Clear (Clear); Urine Urobilinogen Normal (Normal)
[2022-04-07] MEDS: Ketorolac 15 MG/ML Vial IV (11:59)
[2022-04-07] MEDS: Ondansetron 4 MG/2 ML Vial IV (11:59)
[2022-04-07 12:01] LABS: Ketone-Dipstick 150 mg/dl (Negative)
[2022-04-07 12:11] LABS: Absolute Lymphocyte Count 2.02 X10^3/uL (0.83-4.51); Absolute Neutrophil Count 4.8 X10^3/uL (2.0-7.7); Basophil# 0.02 X10^3/uL; Basophil% 0.3 % (0-1); Hematocrit 43.6 % (37-47); Lymphocyte # 2.02 X10^3/ul (0.83-4.51); Lymphocyte % 27.8 % (19-41); Mean Corp Hgb Conc 34.4 g/dL (32-36); Mean Corpuscular Hgb 31.7 pg (27.0-32.0); Mean Corpuscular Volume 92.2 fL (81-99); Mean Platelet Vol. 10.5 fl (6.2-12.0); Monocyte# 0.44 X10^3/uL; Monocyte% 6.1 % (0-10); NRBC Flagged by Analyzer 0 % (0-5); Neutrophil # 4.75 X10^3/uL (2.7-7.7); Neutrophil % 65.4 % (47-70); Platelet Count 242 K/mm3 (150-450); RBC Distribution Width CV 13.9 % (11.6-14.6); RBC Distribution Width SD 47.4 fl (35.1-43.9); Red Blood Count 4.73 M/mm3 (4.2-5.4); White Blood Count 7.3 K/mm3 (4.4-11.0)
[2022-04-07 12:23] LABS: Bacteria RARE /hpf (None Seen)
[2022-04-07 12:30] LABS: AST(SGOT) 218 U/L (15-37); Alanine Aminotransfer ALT/SGPT 158 U/L (13-56); Albumin, Serum 4.2 g/dL (3.2-5.0); Alkaline Phosphatase 100 U/L (45-117); Anion Gap 22 (5-15); BUN 12 mg/dL (7-18); BUN/Creat Ratio 17.4 RATIO (10-20); Calcium,Total 8.9 mg/dL (8.5-10.1); Chloride 95 mmol/L (98-107); Creatinine, Serum 0.69 mg/dL (0.55-1.02); EST Glomerular Filtration Rate 95 mL/min (>60); Est Glom Filt Rate - Afr Amer 116 mL/min (>60); Estimated Creatinine Clearance 94.86 ml/min; Globulin 4.1 g/dL (2.2-4.2); Glucose 55 mg/dL (74-106); Lipase 166 U/L (73-393); Protein, Total 8.3 g/dL (6.4-8.2); Sodium Level 137 mmol/L (136-145)
[2022-04-07 12:38] VITALS: BP 130/83; PULSE 99; RESP 18; TEMP 36.6; O2SAT 100
[2022-04-07] MEDS: Potassium Chloride Oral Tablet 20 MEQ 40 MEQ PO (13:06)
[2022-04-07] MEDS: Lisinopril 40 MG Tablet PO (13:06)
== END 2022-04-07 13:11 | disposition home or self-care (01) ==
PROVIDERS: Nurse Practitioner; Emergency Provider Emergency Medicine; PCP Family Medicine; Visit Provider Emergency Medicine
DX: B34.9 Viral infection, unspecified (principal); R11.2 Nausea with vomiting, unspecified; R74.8 Abnormal levels of other serum enzymes; E86.0 Dehydration; I10 Essential (primary) hypertension; F17.210 Nicotine dependence, cigarettes, uncomplicated
CPT/HCPCS: 80053; 81001; 83690; 85025; 87804; 96361; 96374; 96375; 99284; J7030; A4216; J2405

== ENCOUNTER 2022-04-29 07:17 | Inpatient (IN) | payer MEDICAID, SELFPAY ==
[2022-04-29] VITALS (7 sets, daily range): BP systolic 89–132; BP diastolic 46–109; PULSE 90–118; RESP 12–20; TEMP 35.7–37.4; O2SAT 98–100; BMI 26.2; BMI 26.7
--- NOTE | 2022-04-29 07:37 | EX.ED.SAOD ---
HPI History of Present Illness Chief Complaint: Substance Abuse Informant: patient Onset/Context/Timing Quality: shaking, abd cramping, n/v Current Severity: Moderate Maximum Severity: Severe Worsened by: not drinking EtOH Relieved by: drinking EtOH Associated Symptoms Associated Symptoms: Positive for vomiting*, diarrhea* (black x 2 wks), tremor and no; Negative for fever*, rash*, seizure, palpatations, change in mental status, trauma or sex for drugs* Narrative Narrative: 51-year-old patient seeking treatment for alcoholism, asking for detox. She states she has been drinking for several years heavily, she drinks a 1.75 L bottle of unknown proof whiskey over 2 days along with drinking beer the entire day. She has been trying to curb it recently, but she is getting withdrawal symptoms and unable to stop drinking on her own. The withdrawal symptoms include abdominal discomfort/cramping, nausea, vomiting, shaking, anxiety, ataxia. They all go away when she drinks alcohol including the abdominal pain. She has been having black stools for the past 2 months discovered on ROS. She denies any hematemesis or coffee-ground emesis when she vomits. [facility] Medical History (Updated 04/29/22 @ 12:39 by Selene Napoles) Alcoholism Depression Hypertension Mass of pancreas Tobacco dependence Home Medications lisinopril 40 mg tablet 40 mg PO DAILY Check with primary doctor 10/18/18 [History Last Taken Unknown] ondansetron 4 mg disintegrating tablet 4 mg PO Q8H PRN nausea and vomiting #10 tabs 04/07/22 [Rx Last Taken Unknown] escitalopram oxalate 20 mg tablet 20 mg PO DAILY Check with primary doctor 04/29/22 [History Last Taken Unknown] hydroxyzine pamoate 25 mg capsule 25 mg PO DAILY Check with primary doctor 04/29/22 [History Last Taken Unknown] Allergy/AdvReac Type Severity Reaction Status Date / Time venom-honey bee Allergy Anaphylaxis Verified 04/07/22 10:55 [bee venom (honey bee)] Family History (Updated 04/29/22 @ 11:[address] Cristi Tolentino MD) Mother Hypertension Social History Smoking Status: Current every day smoker tobacco type: cigarettes alcohol intake: current alcohol intake frequency: 3 or more drinks per day Alcohol type: beer and hard liquor ROS ROS ED Constitutional Constitutional ED: Reports malaise and other Details: Shaky ; Denies chills or fever(s) Eyes Eyes: Denies change in vision or diplopia ENT ENT ED: Denies rhinorrhea or sore throat Cardiovascular Cardiovascular: Denies chest pain or palpitations Respiratory/Chest Respiratory/Chest: Denies cough or dyspnea Gastrointestinal Gastrointestinal: Reports abdominal pain, diarrhea, melena, nausea and vomiting Genitourinary Genitourinary ED: Denies dysuria or hematuria Musculoskeletal Musculoskeletal: Reports myalgias; Denies back pain or neck pain Integumentary Denies abscess or rash Neurologic Neurologic: Reports other Details: Ataxia when walking, goes away when drinking ; Denies headache(s), paresthesias or weakness Psychiatric Psychiatric: Reports anxiety and depression; Denies suicidal ideation or suicidal thoughts EXAM Physical Exam Const Vital Signs: 04/29/22 07:17 04/29/22 09:24 Temperature 96.2 F L Temperature Source Temporal Pulse Rate 118 H 103 H Respiratory Rate 16 Blood Pressure 132/109 H 100/65 Blood Pressure Mean 116 76 Pulse Ox 99 98 Oxygen Delivery Method Room Air Room Air Positive well nourished and well developed General Appearance ED: well developed and NAD HEENT Reports moist mucous membranes normocephalic and atraumatic Eyes PERRL and EOMs intact bilaterally Neck full ROM and supple Chest Wall inspection of chest normal and palpation of chest normal Resp normal respiratory effort and clear to auscultation bilaterally Cardio regular rate, regular rhythm and no murmurs Rate: tachycardic GI soft to palpation, non-tender and non-distended Auscultation: normoactive bowel sounds Palpation: soft Back/Spine no CVA tenderness General Back: other FROM Extremity normal to inspection General Extremety ED: Negative for edema, pulses abnormal or tenderness General Extremity: Negative for edema or pulses abnormal Neuro oriented x3, CN's II-XII intact bilaterally and no sensory deficits noted Sensorium / Orientation: awake and alert Gait (Neuro): normal gait Motor Exam: strength 5/5 throughout Psych mental status grossly normal and thought process normal Skin no rashes or lesions noted and no wounds MDM MDM MDM Narrative Medical decision making narrative: Patient clinically and hemodynamically stable, feeling a little better after Ativan and IV fluids. Metabolic screen shows she is dehydrated, she has some mild liver enzyme elevation with a normal INR, low potassium, and her bicarb is low suggesting a metabolic acidosis. I obtained a VBG, her pH is only 7.36 which is not too bad/abnormal, I added a serum acetone level to see if this acidosis is due to AKA. If that is the case, we will start D5 half-normal saline, but at this time the acetone level is pending. I am ordering her IV potassium replacement in addition to the IV fluids, her hemoglobin is normal and actually a little on the high side so I am not concerned about acute emergent upper GI bleeding, she does not have specific symptoms of that other than complaining of black stools. She does not want a rectal exam right now and I think that is fine, if she has a bowel movement we can send for Hemoccult. We are admitting her to the hospital regardless. Lab Data Attestation: I reviewed the patient's lab results. Labs: Laboratory Results - last 24 hr 04/29/22 04/29/22 04/29/22 07:05 07:05 07:05 WBC 6.9 RBC 4.81 Hgb 15.1 H Hct 43.7 MCV 90.9 MCH 31.4 MCHC 34.6 RDW Std Deviation 46.4 H RDW Coeff of Jose M 13.9 Plt Count 153 MPV 10.8 Immature Gran % (Auto) 0.100 Neut % (Auto) 49.3 Lymph % (Auto) 42.1 H [place] % (Auto) 7.8 Eos % (Auto) 0.6 Baso % (Auto) 0.1 Absolute Neuts (auto) 3.4 Absolute Lymphs (auto) 2.92 Nucleated RBC % 0 PT 13.5 INR 1.1 Sodium 132 L Potassium 3.2 L Chloride 93 L Carbon Dioxide 19.0 L Anion Gap 20 H BUN 24 H Creatinine 1.40 H Estim Creat Clear Calc 46.75 Est GFR (MDRD) Af Amer 51 L Est GFR (MDRD) Non-Af 42 L BUN/Creatinine Ratio 17.1 Glucose 91 Calcium 10.0 Total Bilirubin 0.90 AST 274 H ALT 194 H Alkaline Phosphatase 114 Total Protein 8.9 H Albumin 4.4 Globulin 4.5 H Albumin/Globulin Ratio 1.0 Urine Opiates Screen Urine Methadone Screen Ur Barbiturates Screen Ur Phencyclidine Scrn Ur Amphetamines Screen MDMA (Ecstasy) Screen U Benzodiazepines Scrn Urine Cocaine Screen U Cannabinoids Screen Ur Drug Screen Comment Ethyl Alcohol Acetone Level 04/29/22 04/29/22 04/29/22 07:05 07:50 09:25 WBC RBC Hgb Hct MCV MCH MCHC RDW Std Deviation RDW Coeff of Jose M Plt Count MPV Immature Gran % (Auto) Neut % (Auto) Lymph % (Auto) [place] % (Auto) Eos % (Auto) Baso % (Auto) Absolute Neuts (auto) Absolute Lymphs (auto) Nucleated RBC % PT INR Sodium Potassium Chloride Carbon Dioxide Anion Gap BUN Creatinine Estim Creat Clear Calc Est GFR (MDRD) Af Amer Est GFR (MDRD) Non-Af BUN/Creatinine Ratio Glucose Calcium Total Bilirubin AST ALT Alkaline Phosphatase Total Protein Albumin Globulin Albumin/Globulin Ratio Urine Opiates Screen NEGATIVE Urine Methadone Screen NEGATIVE Ur Barbiturates Screen NEGATIVE Ur Phencyclidine Scrn NEGATIVE Ur Amphetamines Screen NEGATIVE MDMA (Ecstasy) Screen NEGATIVE U Benzodiazepines Scrn NEGATIVE Urine Cocaine Screen NEGATIVE U Cannabinoids Screen POSITIVE H Ur Drug Screen Comment Ethyl Alcohol 8.0 Acetone Level SMALL H ABG Data ABG results: ABG 04/29/22 09:32 Specimen Type AURE VBG pH 7.36 VBG pO2 57 H VBG HCO3 18 L VBG Total CO2 19 L VBG O2 Sat (Calc) 89 H VBG Base Excess -8 L POC Mix VBG pCO2 Pt Tmp 31.4 L Discharge Plan Dx/Rx/DC Orders Clinical Impression: Alcohol dependence, Alcohol withdrawal, Acute dehydration, Hypokalemia, Black stools Disposition Disposition: Acute Care Hospital [facility] Discharge Date/Time: 04/29/22 10:25
[2022-04-29] MEDS: Ondansetron 4 MG/2 ML Vial IV (07:57)
[2022-04-29] MEDS: LORazepam 2 MG/ML Syringe 1 MG IV (07:58)
[2022-04-29] MEDS: 0.9% Normal Saline 1,000 ML 999 ML IV (07:58)
[2022-04-29 07:59] LABS: Absolute Lymphocyte Count 2.92 X10^3/uL (0.83-4.51); Absolute Neutrophil Count 3.4 X10^3/uL (2.0-7.7); Basophil# 0.01 X10^3/uL; Basophil% 0.1 % (0-1); Eosinophil# 0.04 X10^3/uL; Eosinophils% 0.6 % (0-5); Hematocrit 43.7 % (37-47); Hemoglobin 15.1 g/dL (12.0-15.0); Lymphocyte # 2.92 X10^3/ul (0.83-4.51); Lymphocyte % 42.1 % (19-41); Mean Corp Hgb Conc 34.6 g/dL (32-36); Mean Corpuscular Hgb 31.4 pg (27.0-32.0); Mean Corpuscular Volume 90.9 fL (81-99); Mean Platelet Vol. 10.8 fl (6.2-12.0); Monocyte# 0.54 X10^3/uL; Monocyte% 7.8 % (0-10); NRBC Flagged by Analyzer 0 % (0-5); Neutrophil # 3.42 X10^3/uL (2.7-7.7); Neutrophil % 49.3 % (47-70); Platelet Count 153 K/mm3 (150-450); RBC Distribution Width CV 13.9 % (11.6-14.6); RBC Distribution Width SD 46.4 fl (35.1-43.9); Red Blood Count 4.81 M/mm3 (4.2-5.4); White Blood Count 6.9 K/mm3 (4.4-11.0)
[2022-04-29 08:18] LABS: AST(SGOT) 274 U/L (15-37); Alanine Aminotransfer ALT/SGPT 194 U/L (13-56); Albumin, Serum 4.4 g/dL (3.2-5.0); Alkaline Phosphatase 114 U/L (45-117); Anion Gap 20 (5-15); BUN 24 mg/dL (7-18); BUN/Creat Ratio 17.1 RATIO (10-20); Chloride 93 mmol/L (98-107); EST Glomerular Filtration Rate 42 mL/min (>60); Est Glom Filt Rate - Afr Amer 51 mL/min (>60); Estimated Creatinine Clearance 46.75 ml/min; Globulin 4.5 g/dL (2.2-4.2); Glucose 91 mg/dL (74-106); Potassium 3.2 mmol/L (3.5-5.1); Protein, Total 8.9 g/dL (6.4-8.2); Sodium Level 132 mmol/L (136-145)
[2022-04-29 08:40] LABS: International Normalized Ratio 1.1; Prothrombin Time (Protime)PT. 13.5 SECONDS (11.7-14.9)
[2022-04-29 09:41] LABS: Blood Gas Specimen Type VEN; VBG BASE EXCESS -8 mmol/L (-1.0-3.5); VBG Bicarbonate 18 mmol/L (22-26); VBG PO2 57 mmHg (25-40); VBG SO2 89 % (50-70); VBG TCO2 19 mmol/L (23-33); VBG pCO2 31.4 mmHg (41-51); VBG pH 7.36 (7.32-7.42)
[2022-04-29 09:44] LABS: Amphetamine Urine VISTA NEGATIVE (<1000 ng/mL); Barbiturate Urine VISTA NEGATIVE (< 200 ng/mL); Benzodiazepine Urine VISTA NEGATIVE (< 200 ng/mL); Cocaine Urine VISTA NEGATIVE (< 300 ng/mL); Ecstacy Urine VISTA NEGATIVE (< 500 ng/mL); Methadone Urine VISTA NEGATIVE (< 300 ng/mL); PCP Urine VISTA NEGATIVE (< 25 ng/mL); THC Urine VISTA POSITIVE (< 50 ng/mL); Vista UDS pH Range 5
--- NOTE | 2022-04-29 10:13 | PCM.HP.STD ---
HPI - General General Date of Admission: 04/29/22 Date of Service: 04/29/22 Chief Complaint: Desire for alcohol detoxification HPI Narrative MIN COWART, is a 51 F history of chronic alcohol dependence who presented with desire for alcohol detoxification. Patient admitted to drinking beer almost [id number] during the day as well as finishing a bottle of whiskey in 2 days. He elected to present to the emergency department wanting to undergo detox. Last alcohol was a shot of whiskey on the morning of her admission. On further questioning patient denied any nausea no vomiting. Denied any tremors no seizures. An assessment of early alcohol withdrawal admitted to regular nursing floor for further management [facility] Medical History (Updated 04/29/22 @ 12:39 by Selene Napoles) Alcoholism Depression Hypertension Mass of pancreas Tobacco dependence Home Medications lisinopril 40 mg tablet 40 mg PO DAILY Check with primary doctor 10/18/18 [History Last Taken Unknown] ondansetron 4 mg disintegrating tablet 4 mg PO Q8H PRN nausea and vomiting #10 tabs 04/07/22 [Rx Last Taken Unknown] escitalopram oxalate 20 mg tablet 20 mg PO DAILY Check with primary doctor 04/29/22 [History Last Taken Unknown] hydroxyzine pamoate 25 mg capsule 25 mg PO DAILY Check with primary doctor 04/29/22 [History Last Taken Unknown] Allergy/AdvReac Type Severity Reaction Status Date / Time venom-honey bee Allergy Anaphylaxis Verified 04/07/22 10:55 [bee venom (honey bee)] Family History (Updated 04/29/22 @ 11:[address] Cristi Tolentino MD) Mother Hypertension Family History no significant family his Social History Smoking Status: Current every day smoker tobacco type: cigarettes alcohol intake: current alcohol intake frequency: 3 or more drinks per day Alcohol type: beer and hard liquor ROS ROS Narrative GENERAL: denies fever, chills, night sweats, weight loss, anorexia HEENT: denies headache, sinus congestion, or drainage, dysphagia RESPIRATORY: denies cough, sputum production, shortness of breath, CARDIAC: denies chest pain, palpitations, orthopnea, PND GASTROINTESTINAL: denies abdominal pain, nausea, vomiting, melena, GENITOURINARY: denies dysuria, urgency, frequency, heamaturia EXTREMITY: denies swelling MUSCULOSKELETAL: denies current joint pain or tenderness NEUROLOGIC: denies focal numbness, weakness, tingling HEMATOLOGIC: denies easy bruising and/or hemorrhage INTEGUMENT: denies rashes PSYCHIATRIC: denies suicidal or homicidal ideation Vital Signs Vital Signs Vital Signs: 04/29/22 07:17 04/29/22 09:24 04/29/22 10:07 Temperature 96.2 F L 98 F Temperature Source Temporal Temporal Pulse Rate 118 H 103 H 109 H Respiratory Rate 16 12 Blood Pressure 132/109 H 100/65 101/62 Blood Pressure Mean 116 76 75 Pulse Ox 99 98 Oxygen Delivery Method Room Air Room Air Weight Weight: 76.022 kg Body Mass Index (BMI) 26.2 Physical Exam Narrative GENERAL: cooperative HEENT: Atraumatic; normocephalic EYES; Anicteric, Normal Conjunctiva NECK; supple, normal thyroid, RESPIRATORY: Diminished to auscultation CARDIOVASCULAR: Regular S1 S2, GI: soft, normoactive bowel sounds, : No Renal angle tenderness; EXTREMITIES: No edema, no clubbing, MUSCULOSKELETAL: no muscle wasting NEURO: Awake; no lateralizing signs. SKIN: No Rash PSYCH; Flat affect Results Lab / Micro Data Result Diagrams: 04/29/22 07:05 04/29/22 07:05 Labs: Laboratory Results - last 24 hr 04/29/22 07:05: WBC 6.9, RBC 4.81, Hgb 15.1 H, Hct 43.7, MCV 90.9, MCH 31.4, MCHC 34.6, RDW Std Deviation 46.4 H, RDW Coeff of Jose M 13.9, Plt Count 153, MPV 10.8, Immature Gran % (Auto) 0.100, Neut % (Auto) 49.3, Lymph % (Auto) 42.1 H, [place] % (Auto) 7.8, Eos % (Auto) 0.6, Baso % (Auto) 0.1, Absolute Neuts (auto) 3.4, Absolute Lymphs (auto) 2.92, Nucleated RBC % 0 04/29/22 07:05: PT 13.5, INR 1.1 04/29/22 07:05: Sodium 132 L, Potassium 3.2 L, Chloride 93 L, Carbon Dioxide 19.0 L, Anion Gap 20 H, BUN 24 H, Creatinine 1.40 H, Estim Creat Clear Calc 46.75, Est GFR (MDRD) Af Amer 51 L, Est GFR (MDRD) Non-Af 42 L, BUN/Creatinine Ratio 17.1, Glucose 91, Calcium 10.0, Total Bilirubin 0.90, AST 274 H, ALT 194 H, Alkaline Phosphatase 114, Total Protein 8.9 H, Albumin 4.4, Globulin 4.5 H, Albumin/Globulin Ratio 1.0 04/29/22 07:05: Ethyl Alcohol 8.0 04/29/22 09:25: Urine Opiates Screen NEGATIVE, Urine Methadone Screen NEGATIVE, Ur Barbiturates Screen NEGATIVE, Ur Phencyclidine Scrn NEGATIVE, Ur Amphetamines Screen NEGATIVE, MDMA (Ecstasy) Screen NEGATIVE, U Benzodiazepines Scrn NEGATIVE, Urine Cocaine Screen NEGATIVE, U Cannabinoids Screen POSITIVE H, Ur Drug Screen Comment ABG Data ABG results: ABG 04/29/22 09:32 Specimen Type AURE VBG pH 7.36 VBG pO2 57 H VBG HCO3 18 L VBG Total CO2 19 L VBG O2 Sat (Calc) 89 H VBG Base Excess -8 L POC Mix VBG pCO2 Pt Tmp 31.4 L Assessment & Plan Assessment/Plan (1) Alcohol dependence: (2) Alcohol withdrawal: (3) Acute dehydration: PLAN: Plan Patient is a 51-year-old lady presenting with acute alcohol withdrawal 1. Acute alcohol withdrawal -patient has been admitted to regular nursing floor being managed with phenobarb taper in addition to adjuvant medications for her symptoms 2. Acute kidney injury ? Baseline creatinine from 04/07/2022 was 0.69, creatinine on admission was 1.40. Started on IV fluids with subsequent monitoring of electrolytes ordered 3. Hypokalemia ? Corrected per protocol repeat labs ordered for monitoring 5. Hyponatremia ? Multifactorial including possible beer potomania as well as hypovolemic hyponatremia started on fluids with monitoring of electrolyte 5. Acute transaminitis ? Secondary to chronic alcohol use we will monitor 6. Chronic alcohol dependence ? Counseled on cessation 7. Tobacco dependence - Counseled on cessation, offered nicotine patch for tobacco cravings 8. Essential hypertension ? Patient is on lisinopril held in view of impaired kidney function started on amlodipine with close monitoring of vitals 9. DVT prophylaxis Low risk did encourage early ambulation Charges/Coding Visit Charges Inpatient E&M: 84708 Subs Hosp L3
[2022-04-29] MEDS: Lactated Ringers 1,000 ML 125 ML IV (11:29)
[2022-04-29] MEDS: Potassium Chloride 10mEq/100mL 10 MEQ/100 ML IV.SOLN. 100 MEQ IV BOLUS (11:29)
[2022-04-29 11:30] LABS: Prothrombin Time (Protime)PT. 13.2 SECONDS (11.7-14.9)
[2022-04-29] MEDS: Escitalopram Oxalate 20 MG Tablet PO (11:35)
[2022-04-29] MEDS: Phenobarbital 32.4 MG Tablet 64.8 MG PO ×3 (11:36→20:33)
[2022-04-29] MEDS: LORazepam 2 MG/ML Syringe 0.5 MG IV (20:31)
[2022-04-29] MEDS: 0.9% Saline Lock 10 ML Syringe IV (20:33)
[2022-04-30] MEDS: traZODone 100 MG Tablet PO ×2 (00:45→19:41)
[2022-04-30] MEDS: Phenobarbital 32.4 MG Tablet 64.8 MG PO ×6 (00:45→19:02)
[2022-04-30 04:32] VITALS: BP 101/69; PULSE 95; RESP 18; TEMP 37.2; O2SAT 98
[2022-04-30 07:18] LABS: AST(SGOT) 127 U/L (15-37); Alanine Aminotransfer ALT/SGPT 113 U/L (13-56); Albumin, Serum 3.2 g/dL (3.2-5.0); Alkaline Phosphatase 83 U/L (45-117); Anion Gap 9 (5-15); BUN 16 mg/dL (7-18); BUN/Creat Ratio 30.2 RATIO (10-20); Calcium,Total 8.9 mg/dL (8.5-10.1); Chloride 100 mmol/L (98-107); Creatinine, Serum 0.53 mg/dL (0.55-1.02); EST Glomerular Filtration Rate 130 mL/min (>60); Est Glom Filt Rate - Afr Amer 157 mL/min (>60); Estimated Creatinine Clearance 123.49 ml/min; Globulin 3.2 g/dL (2.2-4.2); Glucose 108 mg/dL (74-106); Protein, Total 6.4 g/dL (6.4-8.2); Sodium Level 136 mmol/L (136-145)
[2022-04-30 08:16] VITALS: BP 94/66; PULSE 92; RESP 18; TEMP 36.7; O2SAT 100
[2022-04-30] MEDS: Folic Acid 1 MG Tablet PO (08:24)
[2022-04-30] MEDS: Thiamine Hydrochloride 100 MG Tablet PO (08:24)
--- NOTE | 2022-04-30 11:09 | ADDICTION ---
This caption writer met with PT to conduct ASAM, MSE, AUDIT assessments and to plan for d/c. PT A+Ox4 and participated actively. All assessments completed and placed in PT's chart. PT plans to f/u with inpatient treatment services. This worker will update once facility is identified and pt is approved. PT did not indicate a need for transportation post d/c from [facility].
[2022-04-30] MEDS: Escitalopram Oxalate 20 MG Tablet PO (11:37)
[2022-04-30] MEDS: FLU VACC QS2022-23(6MOS UP)/PF 60 MCG/0.5 ML SYRINGE IM (12:58)
[2022-04-30 13:07] VITALS: BP 117/89; PULSE 98; RESP 16; TEMP 36.8; O2SAT 99
[2022-04-30] MEDS: amLODIPine 5 MG Tablet PO (13:09)
[2022-04-30 14:00] VITALS: BP 131/78; PULSE 98; RESP 16; TEMP 36.6; O2SAT 100
[2022-04-30 18:50] VITALS: BP 120/83; PULSE 89; RESP 16; TEMP 36.6; O2SAT 100
[2022-04-30] MEDS: Potassium Chloride Oral Tablet 20 MEQ 40 MEQ PO (19:02)
[2022-04-30] MEDS: Dicyclomine 10 MG Capsule 20 MG PO (19:07)
[2022-04-30] MEDS: Gabapentin 300 MG Capsule PO (19:07)
--- NOTE | 2022-04-30 19:38 | PN.HOSP_ITS ---
Subjective Subjective Patient was seen and examined today, she states that she is going to do inpatient detox after she is discharged from the hospital here. Patient does not complain of any nausea, muscle pains, or tremor, she does not appear to be somnolent or agitated. Objective Data Objective Data Vital Signs: Vital Signs Temp Pulse Resp BP Pulse Ox O2 Del Method 97.8 F 89 16 120/83 H 100 Room Air 04/30/22 18:50 04/30/22 18:50 04/30/22 18:50 04/30/22 18:50 04/30/22 18:50 04/30/22 18:50 Oxygen Delivery Method Room Air Weight: 77.564 kg Body Mass Index (BMI) 26.7 Intake & Output: Intake and Output for Last 24 Hours 04/28/22 04/29/22 04/30/22 23:59 23:59 23:59 Intake Total 2840 / 2840 750 / 750 Balance 2840 / 2840 750 / 750 Lab / Micro Data Result Diagrams: 04/29/22 07:05 05/01/22 03:53 Labs: Laboratory Results - last 24 hr 04/30/22 04:25: Sodium 136, Potassium 3.0 L, Chloride 100, Carbon Dioxide 27.0, Anion Gap 9, BUN 16, Creatinine 0.53 L, Estim Creat Clear Calc 123.49, Est GFR (MDRD) Af Amer 157, Est GFR (MDRD) Non-Af 130, BUN/Creatinine Ratio 30.2 H, Glucose 108 H, Calcium 8.9, Total Bilirubin 0.60, AST 127 H, ALT 113 H, Alkaline Phosphatase 83, Total Protein 6.4, Albumin 3.2, Globulin 3.2, Albumin/Globulin Ratio 1.0 Physical Exam Const alert, oriented x3, no apparent distress and healthy appearing General Appearance: cooperative, well kempt and well developed Orientation / Consciousness: awake, oriented to person, oriented to place and oriented to time HEENT normocephalic and moist oral mucous membranes Eyes PERRL, EOMs intact bilaterally and conjunctivae normal Neck supple, no JVD, thyroid normal and no carotid bruits General: trachea midline Resp normal respiratory effort and clear to auscultation bilaterally Auscultation: Negative for rales, rhonchi or wheezes Cardio regular rate, regular rhythm, no murmurs, no rub and no gallops GI normal to inspection, nondistended, normoactive bowel sounds, soft to palpation, non-tender and non-distended Extremity no clubbing, cyanosis or edema Skin no rashes or lesions noted General Skin Exam: no breakdown Neuro oriented x3, CN's II-XII intact bilaterally, no focal motor deficits and no sensory deficits noted Sensorium / Orientation: awake and alert Speech: speech normal Psych affect normal Assessment & Plan Assessment/Plan (1) Alcohol withdrawal: PLAN: Plan 1. Acute alcohol withdrawal-patient is not symptomatic at this time, she rem ains on phenobarbital #2 essential hypertension-patient will remain on amlodipine #3 chronic alcoholism-complicates care, recovery, management, and prognosis #4 chronic depression-patient is on Lexapro #5 acute kidney injury-resolved #6 hypokalemia-patient was given oral potassium today, I will repeat her BMP in the morning Charges/Coding Visit Charges Inpatient E&M: 44183 Subs Hosp L2
[2022-05-01] MEDS: Phenobarbital 32.4 MG Tablet 64.8 MG PO ×6 (00:25→19:06)
[2022-05-01 01:00] VITALS: BP 106/69; PULSE 95; RESP 16; TEMP 36.7; O2SAT 96
[2022-05-01 05:12] LABS: Anion Gap 7 (5-15); BUN 12 mg/dL (7-18); BUN/Creat Ratio 19.1 RATIO (10-20); Chloride 102 mmol/L (98-107); Creatinine, Serum 0.63 mg/dL (0.55-1.02); EST Glomerular Filtration Rate 107 mL/min (>60); Est Glom Filt Rate - Afr Amer 129 mL/min (>60); Estimated Creatinine Clearance 103.89 ml/min; Glucose 139 mg/dL (74-106); Potassium 3.1 mmol/L (3.5-5.1); Sodium Level 136 mmol/L (136-145)
[2022-05-01 07:00] VITALS: BP 122/87; PULSE 95; RESP 16; TEMP 36.8; O2SAT 96
[2022-05-01] MEDS: Thiamine Hydrochloride 100 MG Tablet PO (07:13)
[2022-05-01] MEDS: Folic Acid 1 MG Tablet PO (07:13)
[2022-05-01 07:15] VITALS: BP 122/87; PULSE 95; RESP 16; TEMP 36.8; O2SAT 96
[2022-05-01] MEDS: amLODIPine 5 MG Tablet PO (09:39)
[2022-05-01] MEDS: Escitalopram Oxalate 20 MG Tablet PO (09:39)
--- NOTE | 2022-05-01 10:46 | ADDICTION ---
Patient has been approved for the [facility] in [place]. They will provide transportation tomorrow at 10am.
[2022-05-01 13:00] VITALS: BP 126/84; PULSE 97; RESP 18; TEMP 36.8; O2SAT 96
[2022-05-01 15:23] VITALS: BP 124/94; PULSE 89; RESP 16; TEMP 37.1; O2SAT 96
[2022-05-01] MEDS: Dicyclomine 10 MG Capsule 20 MG PO (15:30)
--- NOTE | 2022-05-01 18:14 | PCM.PN.HOSP ---
Subjective Subjective Seen and examined today, she is not having any tremors or anxiety at this time, she requested that she be given medication before her transfer tomorrow morning to an inpatient detox facility due to anxiety about riding in the car. I decided to place her on Vistaril 100 mg 1 hour before she is transported tomorrow morning. Objective Data Objective Data Vital Signs: Vital Signs Temp Pulse Resp BP Pulse Ox O2 Del Method 98.8 F 89 16 124/94 H 96 Room Air 05/01/22 15:23 05/01/22 15:23 05/01/22 15:23 05/01/22 15:23 05/01/22 15:23 05/01/22 16:03 Oxygen Delivery Method Room Air Weight: 77.564 kg Body Mass Index (BMI) 26.7 Intake & Output: Intake and Output for Last 24 Hours 04/29/22 04/30/22 05/01/22 23:59 23:59 23:59 Intake Total 2840 / 2840 750 / 750 950 / 950 Balance 2840 / 2840 750 / 750 950 / 950 Lab / Micro Data Result Diagrams: 04/29/22 07:05 05/01/22 03:53 Labs: Laboratory Results - last 24 hr 05/01/22 03:53: Sodium 136, Potassium 3.1 L, Chloride 102, Carbon Dioxide 27.0, Anion Gap 7, BUN 12, Creatinine 0.63, Estim Creat Clear Calc 103.89, Est GFR (MDRD) Af Amer 129, Est GFR (MDRD) Non-Af 107, BUN/Creatinine Ratio 19.1, Glucose 139 H, Calcium 9.0 Physical Exam Const alert, oriented x3, no apparent distress and healthy appearing General Appearance: cooperative, well kempt and well developed Orientation / Consciousness: awake, oriented to person, oriented to place and oriented to time HEENT normocephalic and moist oral mucous membranes Eyes PERRL, EOMs intact bilaterally and conjunctivae normal Neck supple, no JVD, thyroid normal and no carotid bruits General: trachea midline Resp normal respiratory effort and clear to auscultation bilaterally Auscultation: Negative for rales, rhonchi or wheezes Cardio regular rate, regular rhythm, no murmurs, no rub and no gallops GI normal to inspection, nondistended, normoactive bowel sounds, soft to palpation, non-tender and non-distended Extremity no clubbing, cyanosis or edema Skin no rashes or lesions noted General Skin Exam: no breakdown Neuro oriented x3, CN's II-XII intact bilaterally, no focal motor deficits and no sensory deficits noted Sensorium / Orientation: awake and alert Speech: speech normal Psych affect normal Assessment & Plan Assessment/Plan (1) Alcohol withdrawal: PLAN: Plan 1. Acute alcohol withdrawal-patient is not symptomatic at this time, she remains on phenobarbital, patient is scheduled to be transferred to an inpatient detox facility tomorrow morning. #2 essential hypertension-patient will remain on amlodipine-I have increased the dose to 10 mg daily #3 chronic alcoholism-complicates care, recovery, management, and prognosis #4 chronic depression-patient is on Lexapro #5 acute kidney injury-resolved #6 hypokalemia-patient was given oral potassium today, I will repeat her BMP in the morning Charges/Coding Visit Charges Inpatient E&M: 64261 Subs Hosp L2
[2022-05-01 19:59] VITALS: BP 135/99; PULSE 84; RESP 18; TEMP 36.7; O2SAT 100
[2022-05-01] MEDS: Gabapentin 300 MG Capsule PO (20:14)
[2022-05-01] MEDS: traZODone 100 MG Tablet PO (23:04)
[2022-05-02] MEDS: Phenobarbital 32.4 MG Tablet 64.8 MG PO ×2 (02:33→07:00)
[2022-05-02 02:34] VITALS: BP 99/72; PULSE 77; RESP 18; TEMP 36.8; O2SAT 100
[2022-05-02 06:52] LABS: Anion Gap 7 (5-15); BUN 6 mg/dL (7-18); Calcium,Total 8.6 mg/dL (8.5-10.1); Chloride 101 mmol/L (98-107); Creatinine, Serum 0.55 mg/dL (0.55-1.02); EST Glomerular Filtration Rate 125 mL/min (>60); Est Glom Filt Rate - Afr Amer 151 mL/min (>60); Glucose 115 mg/dL (74-106); Sodium Level 135 mmol/L (136-145)
[2022-05-02] MEDS: Escitalopram Oxalate 20 MG Tablet PO (08:40)
[2022-05-02] MEDS: Thiamine Hydrochloride 100 MG Tablet PO (08:41)
[2022-05-02] MEDS: hydrOXYzine PAM 25 MG Capsule 100 MG PO (08:41)
[2022-05-02] MEDS: Folic Acid 1 MG Tablet PO (08:41)
[2022-05-02] MEDS: amLODIPine 10 MG Tablet PO (08:46)
[2022-05-02 08:49] VITALS: BP 117/65; PULSE 84; RESP 16; TEMP 37; O2SAT 96
--- NOTE | 2022-05-02 09:59 | DCINST_ITS ---
Discharge Instructions Diet Discharge Diet: No restrictions Activity Discharge Activity: Return to Normal Activity Weight Bearing Status: Full weight bearing Follow Up Care Test Results: Test results from this visit will be discussed in further detail at your follow- up appointment, if applicable. Discharge Plan Admission Admit Date/Time: 04/29/22 10:04 Primary Reason for Your Visit: alcohol detox Attending Provider: Faisal Ospina Primary Care Provider: Alexis Martinez Consulting Providers: Cristi Tolentino Discharge Orders/Prescriptions Prescriptions: New amlodipine 10 mg Tablet 10 mg PO DAILY Qty: 30 0RF Continued ondansetron 4 mg tablet,disintegrating 4 mg PO Q8H PRN (Reason: nausea and vomiting) Qty: 10 0RF hydroxyzine pamoate 25 mg capsule 25 mg PO DAILY Label Comments: Take 1 capsule by mouth twice daily as needed for anxiety. escitalopram oxalate 20 mg tablet 20 mg PO DAILY Label Comments: Take 1 tablet by mouth once daily. Discontinued lisinopril 40 MG tablet 40 mg PO DAILY Label Comments: Take 1 tablet by mouth once daily. Referrals / Follow Up: Alexis Martinez MD [Primary Care Provider] - See Referral Note (call to make follow up appointment in May) Disposition Disposition (needs filled in before D/C Order can be placed): DC/Tx to Another Type of HCF
[2022-05-02] MEDS: Potassium Chloride Oral Tablet 20 MEQ 40 MEQ PO (10:14)
[2022-05-02 10:25] VITALS: BP 112/70; PULSE 74; RESP 18; TEMP 37.2; O2SAT 100
--- NOTE | 2022-05-20 13:48 | PCM.DC.SUM ---
Providers Date of Admission: 04/29/22 Date of Discharge: 05/02/22 Primary Care Physician: Dr. Alexis Martinez MD Reason For Visit: ALCOHOL WITHDRAWAL Diagnosis Discharge Diagnosis (1) Alcohol withdrawal: Status: Acute Code(s): F10.939 - Alcohol use, unspecified with withdrawal, unspecified Plan 1. Acute alcohol withdrawal-patient is not symptomatic at this time, she remains on phenobarbital, patient is scheduled to be transferred to an inpatient detox facility tomorrow morning. #2 essential hypertension-patient will remain on amlodipine-I have increased the dose to 10 mg daily #3 chronic alcoholism-complicates care, recovery, management, and prognosis #4 chronic depression-patient is on Lexapro #5 acute kidney injury-resolved #6 hypokalemia-patient was given oral potassium today, I will repeat her BMP in the morning Medications at Discharge Home Medications ondansetron 4 mg disintegrating tablet 4 mg PO Q8H PRN nausea and vomiting #10 tabs 04/07/22 escitalopram oxalate 20 mg tablet 20 mg PO DAILY Check with primary doctor 04/29/22 hydroxyzine pamoate 25 mg capsule 25 mg PO DAILY Check with primary doctor 04/29/22 amlodipine 10 mg tablet 10 mg PO DAILY #30 tabs 05/02/22 potassium chloride 20 mEq tablet,extended release(part/cryst) 20 meq PO DAILY #30 tabs 05/02/22 Hospital Course Operations None Procedures None Summary of Care Provided Minutes Spent on Discharge: 31 Hospital Course: This 51-year-old female was seen in the emergency room at [facility] requesting services for alcohol detox, toxicology screen was positive for cannabinoids but was otherwise negative. Patient's of alcohol level was 8. Patient's potassium was low at 3.2. Patient's creatinine was elevated at 1.4. Patient was admitted to [place] [address], orders were entered using the alcohol detox order set, she was seen in consultation by addiction geriatric social work professor. Patient had no untoward events during her hospitalization, her potassium remained low and she had to be given oral potassium supplementation which was continued as an outpatient. Arrangements were made for the patient to go to an inpatient alcohol detox facility at the time of discharge from the hospital. Patient's lisinopril was stopped due to elevated creatinine. She was placed on amlodipine for blood pressure control. On 05/02/2022, patient was seen and examined: On examination she appeared in good health and spirits, she does not appear to be in any distress. Vital signs as documented. Skin warm and dry and without overt rashes. Neck without JVD, thyroid appears normal, trachea is midline, neck is supple. Lungs clear, normal air movement was noted. Heart exam notable for regular rhythm, normal sounds and absence of murmurs, rubs or gallops. Abdomen unremarkable and without evidence of organomegaly, masses, or abdominal aortic enlargement, bowel sounds are present in all 4 quadrants, no abdominal tenderness was noted. Extremities nonedematous, no cyanosis was noted, no clubbing was noted. Neuro: Cranial nerves II through XII are grossly intact, no focal motor deficits were noted, sensation to light touch and pinprick is intact, motor exam 5/5 throughout. Psych: Patient is alert and oriented x3, she does not appear anxious or depressed, she does not appear agitated. Patient was discharged in stable condition on 05/02/2022. Weight / BMI Weight Weight: 77.564 kg Body Mass Index (BMI) 26.7 ABG / Lab / Microbiology Data Result Diagrams: 04/29/22 07:05 05/02/22 06:09 D/C Instructions Discharge Diet: No restrictions Weight Bearing Status: Full weight bearing Meaningful Use Info Meaningful Use Diagnoses (Choose all that apply): None applicable Discharge Plan Admission Admit Date/Time: 04/29/22 10:04 Primary Reason for Your Visit: alcohol detox Attending Provider: Faisal Ospina Primary Care Provider: Alexis Martinez Consulting Providers: Cristi Tolentino Discharge Orders/Prescriptions Prescriptions: New amlodipine 10 mg Tablet 10 mg PO DAILY Qty: 30 0RF potassium chloride 20 mEq tablet,ER particles/crystals 20 meq PO DAILY Qty: 30 0RF Continued ondansetron 4 mg tablet,disintegrating 4 mg PO Q8H PRN (Reason: nausea and vomiting) Qty: 10 0RF hydroxyzine pamoate 25 mg capsule 25 mg PO DAILY Label Comments: Take 1 capsule by mouth twice daily as needed for anxiety. escitalopram oxalate 20 mg tablet 20 mg PO DAILY Label Comments: Take 1 tablet by mouth once daily. Discontinued lisinopril 40 MG tablet 40 mg PO DAILY Label Comments: Take 1 tablet by mouth once daily. Referrals / Follow Up: Alexis Martinez MD [Primary Care Provider] - See Referral Note (call to make follow up appointment in May) Disposition Disposition (needs filled in before D/C Order can be placed): DC/Tx to Another Type of HCF Charges/Coding Visit Charges Inpatient E&M: 69118 Disch Hosp >30min
== END 2022-05-02 10:18 | disposition other institution (70) | DRG 772 ==
LOC: ED 10:09 → MS3 10:35
PROVIDERS: Admitting Provider Internal Medicine; Emergency Provider Emergency Medicine; PCP Family Medicine; Visit Provider Internal Medicine
DX: F10.239 Alcohol dependence with withdrawal, unspecified (principal); N17.9 Acute kidney failure, unspecified; E87.1 Hypo-osmolality and hyponatremia; I10 Essential (primary) hypertension; E87.6 Hypokalemia; E86.0 Dehydration; F17.210 Nicotine dependence, cigarettes, uncomplicated; Y90.0 Blood alcohol level of less than 20 mg/100 ml; F32.A Depression, unspecified; Z23 Encounter for immunization; Z79.899 Other long term (current) drug therapy
CPT/HCPCS: 36415; 80048; 80053; 80307; 82009; 82077; 82803; 83735; 85025; 85610; 99284; J7030; J7120; 90686; A4216; J2405

== ENCOUNTER 2023-11-09 11:41 | Emergency (ER) | payer BC, SELFPAY ==
[2023-11-09 11:41] VITALS: BP 131/88; PULSE 71; RESP 16; TEMP 36.7; O2SAT 100; BMI 24.5
--- NOTE | 2023-11-09 11:48 | CT_ITS ---
STUDY: CT ABDOMEN AND PELVIS WITH CONTRAST REASON FOR EXAM: Female, 53 years old. Pain, distention, maximal tenderness left lower quadrant-- Status post BTL and hysterectomy RADIATION DOSAGE (If Supplied By Facility): CTDIvol = ( 12.75 ) mGy, DLP = ( 567.70 ) mGycm TECHNIQUE: IV 100mL Isovue-370 was administered. Transaxial images were obtained from the dome of the diaphragm to the symphysis pubis. Multiplanar coronal and sagittal images were reformatted. The protocol utilizes one or more of the following dose reduction techniques: automated exposure control, adjustment of mA and/or kV according to patient size,and/or use of iterative reconstruction technique. COMPARISON: MRCP of 10/13/2019 FINDINGS: The visualized lung bases are unremarkable. The visualized portions of the heart are within normal limits. Borderline to mild hepatomegaly. The gallbladder is contracted. Normal spleen. Essentially unremarkable pancreas. Minimal prominence of the pancreatic duct. Normal bilateral adrenal glands. Normal visualized stomach. Nonspecific fluid-filled small bowel loops without evidence of bowel obstruction. Mild diverticulosis. No evidence of acute diverticulitis. Fecal retention. The appendix is visualized and appears normal. There is scattered atherosclerotic calcification of the abdominal aorta, without a demonstrated aneurysm. No retroperitoneal adenopathy. Normal right kidney. Normal left kidney. Normal urinary bladder. There is absence of the uterus consistent with a prior hysterectomy. Mild fluid in the endocervical canal. There is a small umbilical hernia containing fat. Normal osseous structures. CT/Abdomen/Pelvis W IV Cont ONLY IMPRESSION: Nonspecific fluid-filled small bowel loops without evidence of bowel obstruction concerning for enteritis. Electronically Signed: Jerardo Carreon MD at 13:43 EDT ,
--- NOTE | 2023-11-09 11:49 | EX.ED.DYSGE1 ---
HPI History of Present Illness Chief Complaint: Abd Pain Detail of Chief Complaint: Crampy abdominal pain like labor Informant: patient Onset/Context/Timing Onset: Days (For 5 days ago) Context: Sudden Onset Timing: Continuous and Waxes and wanes Quality: Colicky/crampy Location: Generalized Current Severity: Mild Maximum Severity: Severe Worsened by: Movement Relieved by: Nothing Associated Symptoms Associated Symptoms: Nausea only and complains of back pain Narrative Narrative: Patient is a 53-year-old woman status post bilateral tubal ligation, hysterectomy with history of pancreatitis due to alcohol use who has not had an alcoholic beverage and 1.5 years who presents with generalized abdominal pain that is described as labor contractions head is throughout. She does endorse nausea without vomiting diarrhea. She denies dysuria, frequency, urgency or hematuria. She states prior to the abdominal pain she had some low back pain and still has low back pain. She denies bowel bladder dysfunction. Denies saddle paresthesia anesthesia. Denies radicular pain. She denies foot drop. She denies fever, chills night sweats. She denies headache, visual, ocular auditory symptoms. She denies cardiac or respiratory symptoms. Prior similar symptoms: No Recent Illness/Hospitalization: No PFSH [facility] Medical History Depression Black stools Hypertension Tobacco dependence Alcoholism Mass of pancreas Home Medications ?Medication ?Instructions ?Recorded ?Last Taken ?Type ondansetron 4 mg disintegrating 4 mg PO Q8H PRN nausea and 04/07/22 Unknown Rx tablet vomiting #10 tabs escitalopram oxalate 20 mg tablet 20 mg PO DAILY Check with primary 04/29/22 Unknown History doctor hydroxyzine pamoate 25 mg capsule 25 mg PO DAILY Check with primary 04/29/22 Unknown History doctor amlodipine 10 mg tablet 10 mg PO DAILY #30 tabs 05/02/22 Unknown Rx potassium chloride 20 mEq 20 meq PO DAILY #30 tabs 05/02/22 Unknown Rx tablet,extended release(part/cryst) ciprofloxacin HCl 500 mg tablet 500 mg PO BID #9 TABLETS 11/09/23 Unknown Rx dicyclomine 10 mg capsule 20 mg (2 x 10 mg) PO TIDAC #20 11/09/23 Unknown Rx CAPSULES metronidazole 500 mg tablet 500 mg PO Q8H #14 tabs 11/09/23 Unknown Rx Allergy/AdvReac Type Severity Reaction Status Date / Time venom-honey bee (bee venom Allergy Anaphylaxis Verified 04/07/22 10:55 (honey bee)) Family History Mother Hypertension Surgical History History of hysterectomy Social History Smoking Status: Current every day smoker tobacco type: cigarettes alcohol intake: current alcohol intake frequency: 3 or more drinks per day Alcohol type: beer and hard liquor ROS ROS ED Constitutional Constitutional ED: Denies chills, fever(s), subjective, sweats or weight loss Eyes Eyes: Denies blurry vision, change in vision or diplopia ENT ENT ED: Denies ear pain, rhinorrhea or sore throat Cardiovascular Cardiovascular: Denies chest pain, orthopnea, palpitations or paroxysmal nocturnal dyspnea Respiratory/Chest Respiratory/Chest: Denies cough, dyspnea, dyspnea on exertion, orthopnea or paroxysmal nocturnal dyspnea Gastrointestinal Gastrointestinal: Reports abdominal pain and nausea; Denies constipation, diarrhea, melena or vomiting Genitourinary Genitourinary ED: Denies dysuria, hematuria or urinary frequency Musculoskeletal Musculoskeletal: Reports back pain; Denies arthralgias, myalgias or neck pain Integumentary Denies rash Neurologic Neurologic: Denies headache(s), paresthesias or weakness Hematologic/Lymphatic Hematologic/Lymphatic: Reports systems reviewed and no addt'l complaints, except as documented Allergic/Immunologic Allergic/Immunologic ED: Denies mouth swelling or tongue swelling EXAM Physical Exam Const Vital Signs: 11/09/23 11:41 Temperature 98.1 F Temperature Source Temporal Pulse Rate 71 Respiratory Rate 16 Blood Pressure 131/88 H Blood Pressure Mean 102 Pulse Ox 100 Oxygen Delivery Method Room Air Positive well nourished and well developed Constitutional Narrative: Patient appears uncomfortable she was walking to the restroom. General Appearance ED: well developed; Negative for cyanotic, diaphoretic or pallor HEENT Reports moist mucous membranes HEENT Narrative: Head is atraumatic normocephalic. Ears normal. Nares patent. Eyes PERRL and EOMs intact bilaterally General Eye ED: Negative for pale conjunctiva or scleral icterus Neck no lymphadenopathy, supple and no JVD Chest Wall inspection of chest normal and palpation of chest normal Resp normal respiratory effort and clear to auscultation bilaterally Cardio regular rate, regular rhythm, S1 normal heart sound, S2 normal heart sound and no murmurs GI no masses; Negative for non-tender, non-distended or hepatosplenomegaly Auscultation: hypoactive bowel sounds Palpation: soft, tender other (Generalized colitis in the left lower quadrant.) and guarding LLQ Back/Spine no CVA tenderness Lumbar Spine / Lower Back: lumbar spinal tenderness Extremity normal to inspection General Extremety ED: Negative for edema or tenderness General Extremity: Negative for edema Neuro oriented x3, CN's II-XII intact bilaterally and no sensory deficits noted Neuro Narrative: Gait observed and no foot drop. Sensorium / Orientation: alert Motor Exam: strength 5/5 throughout Psych mental status grossly normal Skin no rashes or lesions noted, no wounds and skin turgor normal General Skin Exam: Negative for jaundice or pallor MDM MDM MDM Narrative Medical decision making narrative: With significant left lower quadrant abdominal pain with distention nausea will obtain CT to evaluate for diverticulitis. With prior history of pancreatitis will obtain lipase level. CBC was obtained assess white count H&H. Electrolyte panel to assess renal function prior to IV contrast. Lab Data Attestation: I reviewed the patient's lab results. Lab results narrative: CBC is unremarkable. There is predominance of lymphocytes. Electrolyte panel is unremarkable. BUN and creatinine are normal however the BUN to creatinine ratio is elevated 25-1. Liver enzymes are normal. Lipase is slightly elevated 83 with the upper end of normal of 75. Labs: Laboratory Results - last 24 hr 11/09/23 11/09/23 12:00 13:02 WBC 8.0 RBC 4.66 Hgb 13.2 Hct 39.9 MCV 85.6 MCH 28.3 MCHC 33.1 RDW Std Deviation 42.4 RDW Coeff of Jose M 13.5 Plt Count 235 MPV 10.4 Immature Gran % (Auto) 0.100 Neut % (Auto) 49.6 Lymph % (Auto) 41.3 H [place] % (Auto) 6.6 Eos % (Auto) 2.2 Baso % (Auto) 0.2 Absolute Neuts (auto) 4.0 Absolute Lymphs (auto) 3.32 Nucleated RBC % 0 Sodium 140 Potassium 3.8 Chloride 108 H Carbon Dioxide 27.0 Anion Gap 5 BUN 14 Creatinine 0.54 L Estim Creat Clear Calc 118.51 Est GFR (MDRD) Af Amer 151 Est GFR (MDRD) Non-Af 125 BUN/Creatinine Ratio 25.8 H Glucose 97 Calcium 9.4 Total Bilirubin 0.40 Direct Bilirubin 0.10 AST 14 L ALT 25 Alkaline Phosphatase 64 Total Protein 7.3 Albumin 4.3 Globulin 3.0 Lipase 83 H Urine Color Yellow Urine Clarity Clear Urine pH 6.5 Ur Specific [place] 1.010 Urine Protein Negative Urine Glucose (UA) Normal Urine Ketones Negative Urine Occult Blood 10 H Urine Nitrite Negative Urine Bilirubin Negative Urine Urobilinogen Normal Ur Leukocyte Esterase Negative Urine RBC 0 SEEN Urine WBC 0 SEEN Ur Squamous Epith Cells 0 SEEN Urine Bacteria 0 SEEN Urine Mucus 0 SEEN Radiography Diagnostic Testing: Clinical Impression(s) from Imaging Studies Abdomen/Pelvis CT 11/09/23 11:48 IMPRESSION: Nonspecific fluid-filled small bowel loops without evidence of bowel obstruction concerning for enteritis. Electronically Signed: Jerardo Carreon MD at 13:43 EDT , The CT was reviewed by me. There is no obvious abnormality. Awaiting formal read. Treatment and Re-Evaluation :: Patient was checked in at 1241. Her pain had improved significantly. She appears comfortable. Interpretation of CAT scan reveals enteritis. Placed on short course of ciprofloxacin and Flagyl. She was discharged home with appropriate home-going instructions. Discharge Plan Triage Chief Complaint: Abd Pain ED Provider: Torey Silva Dx/Rx/DC Orders Clinical Impression: Enteritis Prescriptions: New metronidazole 500 mg tablet 500 mg PO Q8H Qty: 14 0RF ciprofloxacin HCl 500 mg tablet 500 mg PO BID Qty: 9 0RF dicyclomine 10 mg capsule 20 mg PO TIDAC Qty: 20 0RF No Action ondansetron 4 mg tablet,disintegrating 4 mg PO Q8H PRN (Reason: nausea and vomiting) Qty: 10 0RF hydroxyzine pamoate 25 mg capsule 25 mg PO DAILY Patient Comments: Take 1 capsule by mouth twice daily as needed for anxiety. escitalopram oxalate 20 mg tablet 20 mg PO DAILY Patient Comments: Take 1 tablet by mouth once daily. amlodipine 10 mg Tablet 10 mg PO DAILY Qty: 30 0RF potassium chloride 20 mEq tablet,ER particles/crystals 20 meq PO DAILY Qty: 30 0RF Primary Care Provider: Care Physician,No Primary Referrals: Alexis Martinez MD [Non-Staff] - 3-5 Days if not improving Activity Restrictions/Additional Instructions: Your CAT scan shows inflammation of your small bowel. For this reason you were placed on an antibiotic. Recommend follow-up with Dr. Larose if no improvement in 3 to 5 days. Print Language: Sinhala Disposition Disposition: Home, Self Care
[2023-11-09] MEDS: Ketorolac 15 MG/ML Vial IV (12:01)
[2023-11-09] MEDS: Ondansetron 4 MG/2 ML Vial IV (12:01)
[2023-11-09 12:14] LABS: Absolute Lymphocyte Count 3.32 X10^3/uL (0.83-4.51); Basophil# 0.02 X10^3/uL; Basophil% 0.2 % (0-1); Eosinophil# 0.18 X10^3/uL; Eosinophils% 2.2 % (0-5); Hematocrit 39.9 % (37-47); Hemoglobin 13.2 g/dL (12.0-15.0); Lymphocyte # 3.32 X10^3/ul (0.83-4.51); Lymphocyte % 41.3 % (19-41); Mean Corp Hgb Conc 33.1 g/dL (32-36); Mean Corpuscular Hgb 28.3 pg (27.0-32.0); Mean Corpuscular Volume 85.6 fL (81-99); Mean Platelet Vol. 10.4 fl (6.2-12.0); Monocyte# 0.53 X10^3/uL; Monocyte% 6.6 % (0-10); NRBC Flagged by Analyzer 0 % (0-5); Neutrophil # 3.98 X10^3/uL (2.7-7.7); Neutrophil % 49.6 % (47-70); Platelet Count 235 K/mm3 (150-450); RBC Distribution Width CV 13.5 % (11.6-14.6); RBC Distribution Width SD 42.4 fl (35.1-43.9); Red Blood Count 4.66 M/mm3 (4.2-5.4)
[2023-11-09 12:27] LABS: AST(SGOT) 14 U/L (15-37); Alanine Aminotransfer ALT/SGPT 25 U/L (13-56); Albumin, Serum 4.3 g/dL (3.2-5.0); Alkaline Phosphatase 64 U/L (45-117); Anion Gap 5 (5-15); BUN 14 mg/dL (7-18); BUN/Creat Ratio 25.8 RATIO (10-20); Calcium,Total 9.4 mg/dL (8.5-10.1); Chloride 108 mmol/L (98-107); Creatinine, Serum 0.54 mg/dL (0.55-1.02); EST Glomerular Filtration Rate 125 mL/min (>60); Est Glom Filt Rate - Afr Amer 151 mL/min (>60); Estimated Creatinine Clearance 118.51 ml/min; Glucose 97 mg/dL (74-106); Lipase 83 U/L (13-75); Potassium 3.8 mmol/L (3.5-5.1); Protein, Total 7.3 g/dL (6.4-8.2); Sodium Level 140 mmol/L (136-145)
[2023-11-09 13:06] LABS: Bacteria 0 SEEN /hpf (None Seen); Mucous, Urine 0 SEEN /hpf (<or=2+); Red Blood Cells-Urine 0 SEEN /hpf (0-5); Squamous Epithelial Cells - UA 0 SEEN /hpf (5-10); White Blood Cells 0 SEEN /hpf (0-5)
[2023-11-09 13:10] LABS: Color, Urine Yellow (Yellow); Glucose, Dipstick Normal (Normal); Ketone-Dipstick Negative (Negative); Leukocyte Esterase-Dipstick Negative /ul (Negative); Nitrite-Dipstick Negative (Negative); Occult Blood-Urine 10 /ul (Negative); Protein-Dipstick Negative (Negative); Urine Bilirubin Dipstick Negative (Negative); Urine Clarity Clear (Clear); Urine Urobilinogen Normal (Normal); Urine pH 6.5 (5.0 - 8.0)
[2023-11-09 13:41] VITALS: BP 133/87; PULSE 65; RESP 16; O2SAT 100
[2023-11-09] MEDS: metroNIDAZOLE 500 MG Tablet PO (14:17)
[2023-11-09] MEDS: Ciprofloxacin 500 MG Tablet PO (14:17)
== END 2023-11-09 14:23 | disposition home or self-care (01) ==
PROVIDERS: Emergency Provider Emergency Medicine; Visit Provider Emergency Medicine
DX: K52.9 Noninfective gastroenteritis and colitis, unspecified (principal); R10.32 Left lower quadrant pain; I10 Essential (primary) hypertension; Z98.51 Tubal ligation status; Z90.710 Acquired absence of both cervix and uterus; F32.A Depression, unspecified; Z79.899 Other long term (current) drug therapy; F17.210 Nicotine dependence, cigarettes, uncomplicated
CPT/HCPCS: 74177; 80048; 80076; 81001; 83690; 85025; 96374; 96375; 99284; J7030; Q9967; A4216; J2405

== ENCOUNTER 2023-11-30 05:34 | Emergency (ER) | payer BC, SELFPAY ==
[2023-11-30 05:34] VITALS: BP 128/79; PULSE 87; RESP 16; TEMP 36; O2SAT 100; BMI 24.5
--- NOTE | 2023-11-30 05:58 | EX.ED.DYSGE1 ---
HPI History of Present Illness Chief Complaint: Abd Pain Informant: patient Narrative Narrative: Patient is a 53-year-old female with past medical history of pancreatitis. She was seen in the ER roughly 3 weeks ago for abdominal pain and at that time had basic blood work and a CT scan. There was no obvious findings for the cause of her pain. She states after a day or 2 she got completely better and has been feeling normal. However yesterday she noticed some pain in her low back and then today developed upper abdominal discomfort. She states has been no fevers or chills. She reports nausea without vomiting. She denies any loose stool or diarrhea or constipation and states she has been no dysuria. She states that with the back there is been no loss of bowel or bladder control and she denies any IV drug use. She does state that the back pain is worse with motion and does admit to lifting at work. However as the pain progressed from the back into the abdomen and seems to be worsening instead of improving she had concerned this could be related to an infectious process or her pancreas and therefore comes in for evaluation [facility] Medical History Depression Black stools Hypertension Tobacco dependence Alcoholism Mass of pancreas Home Medications ?Medication ?Instructions ?Recorded ?Last Taken ?Type ondansetron 4 mg disintegrating 4 mg PO Q8H PRN nausea and 04/07/22 Unknown Rx tablet vomiting #10 tabs escitalopram oxalate 20 mg tablet 20 mg PO DAILY Check with primary 04/29/22 Unknown History doctor hydroxyzine pamoate 25 mg capsule 25 mg PO DAILY Check with primary 04/29/22 Unknown History doctor amlodipine 10 mg tablet 10 mg PO DAILY #30 tabs 05/02/22 Unknown Rx potassium chloride 20 mEq 20 meq PO DAILY #30 tabs 05/02/22 Unknown Rx tablet,extended release(part/cryst) ciprofloxacin HCl 500 mg tablet 500 mg PO BID #9 TABLETS 11/09/23 Unknown Rx dicyclomine 10 mg capsule 20 mg (2 x 10 mg) PO TIDAC #20 11/09/23 Unknown Rx CAPSULES metronidazole 500 mg tablet 500 mg PO Q8H #14 tabs 11/09/23 Unknown Rx methocarbamol 500 mg tablet 1,000 mg (2 x 500 mg) PO 4X/DAY 11/30/23 Unknown Rx PRN muscle pain/spasm 7 days #56 tabs oxycodone-acetaminophen 5 mg-325 1 tab PO Q6H PRN pain 3 days #12 11/30/23 Unknown Rx mg tablet (Percocet) tabs Allergy/AdvReac Type Severity Reaction Status Date / Time venom-honey bee (bee venom Allergy Anaphylaxis Verified 11/30/23 05:34 (honey bee)) Family History Mother Hypertension Surgical History History of hysterectomy Social History Smoking Status: Current every day smoker tobacco type: cigarettes alcohol intake: current alcohol intake frequency: 3 or more drinks per day Alcohol type: beer and hard liquor EXAM Physical Exam Const Vital Signs: 11/30/23 05:34 11/30/23 07:37 Temperature 96.8 F L 96.8 F L Temperature Source Temporal Pulse Rate 87 59 L Respiratory Rate 16 16 Blood Pressure 128/79 H 95/78 Blood Pressure Mean 95 83 Pulse Ox 100 100 Oxygen Delivery Method Room Air Positive well nourished and well developed General Appearance ED: well developed; Negative for pallor HEENT Reports moist mucous membranes HEENT Narrative: No tongue or lip swelling no oral lesions no airway edema or compromise No signs of infection noted in the posterior pharynx Eyes PERRL and EOMs intact bilaterally General Eye ED: Negative for scleral icterus Neck supple Neck Narrative: No nuchal rigidity or meningeal signs Resp normal respiratory effort and clear to auscultation bilaterally Cardio regular rate and regular rhythm Rate: other Other Details: Heart is regular rate and rhythm without murmurs rubs or gallops GI non-distended GI Narrative: Abdomen is soft and nondistended with hyperactive bowel sounds. There is pain on palpation in the midepigastric and right upper quadrant region. With the greatest pain being in the midepigastric region. Negative Reed sign. No voluntary guarding or rigidity. No pulsatile mass or fluid wave Auscultation: hyperactive bowel sounds Palpation: soft Back/Spine no CVA tenderness Back/Spine Narrative: No CVA tenderness noted. No bony deformity or step-off of the thoracic or lumbar spine no midline tenderness to palpation Patient has bilateral lower paralumbar tenderness and spasm noted that worsens with extension and rotation. No saddle anesthesia. Negative straight leg raise. No clonus or Babinski. Patellar reflexes are plus 2 out of 4 bilaterally Extremity normal to inspection Neuro oriented x3, CN's II-XII intact bilaterally and no sensory deficits noted Sensorium / Orientation: alert Motor Exam: strength 5/5 throughout Psych mental status grossly normal Skin no rashes or lesions noted General Skin Exam: Negative for jaundice or pallor MDM MDM MDM Narrative Medical decision making narrative: Patient presented to the ER with stable vitals and a soft nonsurgical abdomen. She was seen roughly 2 to 3 weeks ago and had laboratory studies as well as CT scan at that time and there was no obvious causes of her abdominal pain. With her report of back pain and abdominal pain differential diagnosis is for pyelonephritis versus UTI versus kidney stone versus lumbosacral strain versus biliary colic versus acute cholecystitis versus acute on chronic pancreatitis versus colitis or gastroenteritis or diverticulitis. Basic blood work was ordered to further assess the patient. I did not feel the need for repeat CT scan as patient arrived with stable vitals and a soft nonsurgical abdomen. Also with her back pain she denied any loss of bowel or bladder control or IV drug use going against cauda equina or epidural abscess. Lab work revealed no clinically significant findings just mild elevation to her CRP which is nonspecific in nature and as it is less than 10 my concern that there is an infectious or inflammatory process is low especially as her white blood cell count and neutrophil counts are normal. Her lipase has improved from just a few weeks ago and is now tightly normal at 61. Urine shows no sign of infection or blood to suggest kidney stone or pyelonephritis. On repeat evaluation patient is resting comfortably her abdomen remains soft and nonsurgical and therefore at this time as exam and history indicates lumbosacral strain coupled with nonspecific abdominal pain and laboratory studies are negative and vitals are stable there is no need for repeat CT scan and she is otherwise safe for discharge History & Record Review Discussion w/independent historian: Patient Lab Data Attestation: I reviewed the patient's lab results. Labs: Laboratory Results - last 24 hr 11/30/23 11/30/23 05:44 06:20 WBC 7.5 RBC 4.61 Hgb 13.0 Hct 39.3 MCV 85.2 MCH 28.2 MCHC 33.1 RDW Std Deviation 41.6 RDW Coeff of Jose M 13.4 Plt Count 227 MPV 10.9 Immature Gran % (Auto) 0.300 Neut % (Auto) 53.7 Lymph % (Auto) 34.8 [place] % (Auto) 7.5 Eos % (Auto) 3.6 Baso % (Auto) 0.1 Absolute Neuts (auto) 4.0 Absolute Lymphs (auto) 2.60 Nucleated RBC % 0 Sodium 139 Potassium 3.9 Chloride 111 H Carbon Dioxide 24.0 Anion Gap 4 L BUN 13 Creatinine 0.61 Estim Creat Clear Calc 104.91 Est GFR (MDRD) Af Amer 132 Est GFR (MDRD) Non-Af 109 BUN/Creatinine Ratio 21.3 H Glucose 124 H Calcium 9.0 Total Bilirubin 0.50 Direct Bilirubin 0.14 AST 15 ALT 19 Alkaline Phosphatase 55 C-React Prot Ext Range 4.25 H Total Protein 6.8 Albumin 3.6 Globulin 3.2 Lipase 61 Urine Color Yellow Urine Clarity Clear Urine pH 6.0 Ur Specific Solomon 1.015 Urine Protein Negative Urine Glucose (UA) Normal Urine Ketones Negative Urine Occult Blood 10 H Urine Nitrite Negative Urine Bilirubin Negative Urine Urobilinogen 1 H Ur Leukocyte Esterase 25 H Urine RBC 0 SEEN Urine WBC 0 SEEN Ur Squamous Epith Cells 0 SEEN Urine Bacteria 0 SEEN Urine Mucus 0 SEEN Discharge Plan Triage Chief Complaint: Abd Pain ED Provider: Alcides Mcneal Dx/Rx/DC Orders Clinical Impression: Nonspecific abdominal pain, Acute myofascial strain of lumbosacral region Instructions: Abdominal Pain, ED Back Sprain/Strain Prescriptions: New oxycodone-acetaminophen [Percocet] 5-325 mg tablet 1 tab PO Q6H PRN (Reason: pain) 3 Days Qty: 12 0RF methocarbamol 500 mg tablet 1,000 mg PO 4X/DAY PRN (Reason: muscle pain/spasm) 7 Days Qty: 56 0RF No Action ondansetron 4 mg tablet,disintegrating 4 mg PO Q8H PRN (Reason: nausea and vomiting) Qty: 10 0RF hydroxyzine pamoate 25 mg capsule 25 mg PO DAILY Patient Comments: Take 1 capsule by mouth twice daily as needed for anxiety. escitalopram oxalate 20 mg tablet 20 mg PO DAILY Patient Comments: Take 1 tablet by mouth once daily. amlodipine 10 mg Tablet 10 mg PO DAILY Qty: 30 0RF potassium chloride 20 mEq tablet,ER particles/crystals 20 meq PO DAILY Qty: 30 0RF metronidazole 500 mg tablet 500 mg PO Q8H Qty: 14 0RF ciprofloxacin HCl 500 mg tablet 500 mg PO BID Qty: 9 0RF dicyclomine 10 mg capsule 20 mg PO TIDAC Qty: 20 0RF Stand Alone Forms: ED Work / School Excuse Primary Care Provider: Alexis Martinez Referrals: Alexis Martinez MD [Primary Care Provider] - Activity Restrictions/Additional Instructions: Your workup today revealed no clinically significant findings for the cause of your abdominal pain. Therefore follow-up with your family doctor to discuss potential GI referral and need for further testing such as EGD and/or colonoscopy. Return to the ER should you have any further concerns or worsening of symptoms Print Language: Turkmen Disposition Disposition: Home, Self Care Discharge Date/Time: 11/30/23 07:40
[2023-11-30] MEDS: 0.9% Normal Saline (1000mL) 1,000 ML 999 ML IV (06:06)
[2023-11-30] MEDS: Morphine 4 MG/ML Syringe IV (06:07)
[2023-11-30] MEDS: Ondansetron 4 MG/2 ML Vial IV (06:08)
[2023-11-30] MEDS: Orphenadrine 60 MG/2 ML Ampul IV (06:08)
[2023-11-30 06:13] LABS: Basophil# 0.01 X10^3/uL; Basophil% 0.1 % (0-1); Eosinophil# 0.27 X10^3/uL; Eosinophils% 3.6 % (0-5); Hematocrit 39.3 % (37-47); Lymphocyte % 34.8 % (19-41); Mean Corp Hgb Conc 33.1 g/dL (32-36); Mean Corpuscular Hgb 28.2 pg (27.0-32.0); Mean Corpuscular Volume 85.2 fL (81-99); Mean Platelet Vol. 10.9 fl (6.2-12.0); Monocyte# 0.56 X10^3/uL; Monocyte% 7.5 % (0-10); NRBC Flagged by Analyzer 0 % (0-5); Neutrophil # 4.01 X10^3/uL (2.7-7.7); Neutrophil % 53.7 % (47-70); Platelet Count 227 K/mm3 (150-450); RBC Distribution Width CV 13.4 % (11.6-14.6); RBC Distribution Width SD 41.6 fl (35.1-43.9); Red Blood Count 4.61 M/mm3 (4.2-5.4); White Blood Count 7.5 K/mm3 (4.4-11.0)
[2023-11-30 06:18] LABS: AST(SGOT) 15 U/L (15-37); Alanine Aminotransfer ALT/SGPT 19 U/L (13-56); Albumin, Serum 3.6 g/dL (3.2-5.0); Alkaline Phosphatase 55 U/L (45-117); Anion Gap 4 (5-15); BUN 13 mg/dL (7-18); BUN/Creat Ratio 21.3 RATIO (10-20); Bilirubin, Direct 0.14 mg/dL (0.00-0.30); CRP 4.25 mg/L (0.0-3.0); Chloride 111 mmol/L (98-107); Creatinine, Serum 0.61 mg/dL (0.55-1.02); EST Glomerular Filtration Rate 109 mL/min (>60); Est Glom Filt Rate - Afr Amer 132 mL/min (>60); Estimated Creatinine Clearance 104.91 ml/min; Globulin 3.2 g/dL (2.2-4.2); Glucose 124 mg/dL (74-106); Lipase 61 U/L (13-75); Potassium 3.9 mmol/L (3.5-5.1); Protein, Total 6.8 g/dL (6.4-8.2); Sodium Level 139 mmol/L (136-145)
[2023-11-30 06:24] LABS: Bacteria 0 SEEN /hpf (None Seen); Mucous, Urine 0 SEEN /hpf (<or=2+); Red Blood Cells-Urine 0 SEEN /hpf (0-5); Squamous Epithelial Cells - UA 0 SEEN /hpf (5-10); White Blood Cells 0 SEEN /hpf (0-5)
[2023-11-30 07:03] LABS: Color, Urine Yellow (Yellow); Glucose, Dipstick Normal (Normal); Ketone-Dipstick Negative (Negative); Leukocyte Esterase-Dipstick 25 /ul (Negative); Nitrite-Dipstick Negative (Negative); Occult Blood-Urine 10 /ul (Negative); Protein-Dipstick Negative (Negative); Specific Gravity, Urine 1.015 (1.002-1.030); Urine Bilirubin Dipstick Negative (Negative); Urine Clarity Clear (Clear); Urine Urobilinogen 1 mg/dl (Normal)
[2023-11-30 07:37] VITALS: BP 95/78; PULSE 59; RESP 16; TEMP 36; O2SAT 100
== END 2023-11-30 07:40 | disposition home or self-care (01) ==
PROVIDERS: Emergency Provider Emergency Medicine; PCP Family Medicine; Visit Provider Emergency Medicine
DX: R10.9 Unspecified abdominal pain (principal); I10 Essential (primary) hypertension; S39.012A Strain of muscle, fascia and tendon of lower back, initial encounter; F17.210 Nicotine dependence, cigarettes, uncomplicated; X58.XXXA Exposure to other specified factors, initial encounter
CPT/HCPCS: 80048; 80076; 81001; 83690; 85025; 86140; 96361; 96374; 96375; 99284; J7030; A4216; J2405